=== PATIENT | female | born 1960 | race Caucasian/White ===

== ENCOUNTER → 2019-04-09 | Outpatient (CLI) | payer OTHER | END | disposition home or self-care (01) | LOC: LAB SHORT 13:50 → LAB 13:50 | DX: R30.0 Dysuria (principal) | CPT/HCPCS: 87086 ==

== ENCOUNTER 2020-01-28 04:49 | Inpatient (IN) | payer OTHER ==
[~2020-01-28] VITALS: Ht 68.2 cm; Wt 68.3 kg
[2020-01-28 05:13] LABS: BASOPHILS ABSOLUTE AUTO 0.04 K/mm3 (0.00-0.23); BASOPHILS PERCENT AUTO 0 % (0-2); EOSINOPHILS ABSOLUTE AUTO 0.27 K/mm3 (0.00-0.68); EOSINOPHILS PERCENT AUTO 3 % (0-6); Hematocrit 40.3 % (33.0-51.0); Hemoglobin 13.5 g/dL (11.5-16.0); IMMATURE GRAN ABSOLUTE AUTO 0.03 K/mm3 (0.00-0.10); IMMATURE GRAN PERCENT AUTO 0 % (0-1); LYMPHOCYTES PERCENT AUTO 26 % (21-46); MONOCYTES ABSOLUTE AUTO 0.61 K/mm3 (0.16-1.47); MONOCYTES PERCENT AUTO 6 % (4-13); Mean Corpuscular HGB 28.7 pg (26.0-34.0); Mean Corpuscular HGB Conc 33.5 g/dL (31.5-36.5); Mean Corpuscular Volume 86 fL (80-100); Mean Platelet Volume 10.1 fL (9.1-12.4); NEUTROPHILS ABSOLUTE AUTO 6.35 K/mm3 (1.96-9.15); NEUTROPHILS PERCENT AUTO 65 % (41-73); Platelet Count 296 K/mm3 (150-400); RDW Coefficient Variation 13.2 % (11.7-14.2); RDW Standard Deviation 41.9 fL (35.1-46.3)
[2020-01-28 05:46] LABS: Alanine Aminotransfer (ALT/SGP 17 U/L (12-78); Albumin, Blood 3.5 g/dL (3.4-5.0); Albumin/Globulin Ratio 0.9 (0.8-1.8); Alk Phos 89 U/L (50-136); Anion Gap 5 mmol/L (6-16); Aspartate Aminotrans (AST/SGOT 29 U/L (12-37); Bilirubin, Total 0.4 mg/dL (0.1-1.0); Blood Urea Nitrogen 9 mg/dL (8-24); Bun/Creatinine Ratio 11.8 (12.0-20.0); CO2, Blood 25 mmol/L (21-32); Calcium, Blood 8.8 mg/dL (8.5-10.1); Chloride, Blood 111 mmol/L (98-108); Creatinine, Blood 0.76 mg/dL (0.40-1.00); Globulin, Blood 3.7 g/dL (2.2-4.0); Glomerular Filtration Rate >60 (60-); Glucose, Blood 106 mg/dL (70-99); Potassium, Blood 4.5 mmol/L (3.5-5.5); Sodium, Blood 141 mmol/L (136-145); Total Protein, Blood 7.2 g/dL (6.4-8.2)
[2020-01-28 05:47] LABS: Troponin I 0.763 ng/mL (0.000-0.040)
--- NOTE | 2020-01-28 07:41 | NUR ---
PT ADMITTED HERE FROM ED TO [place] [address] VIA BED. RECEIVED REPORT FROM ZACARIAS. I STARTED THE ADMISSION, THEN RECEIVED THE CALL FROM LAB OF CRIT[facility]UE OF 1.42 TROPONIN. PT WILL BE SOON TRANSFERRED TO PCU. DR LAMBERT AND CHARGE NURSE- AWAITING BED FOR PCU
[2020-01-28 07:56] LABS: CPK Creatine Kinase 120 U/L (26-193)
--- NOTE | 2020-01-28 08:22 | NUR ---
PT TRANSFERRED FROM [place] [address] TO PCU 14. GAVE REPORT TO JOSÉ ENCISO AT 0815. PRIOR TO TRANSFER, NITRO WAS GIVEN AND NO CHANGES ON PT PAIN LEVEL. EKG WAS DONE, DR BALL ALSO CAME IN TO SEE THE PT.
--- NOTE | 2020-01-28 10:55 | NUR ---
Echocardiogram completed.
--- NOTE | 2020-01-28 13:41 | NUR ---
RIGHT RADIAL TR BAND IN PLACE POST ANGIO CATH. RIGHT RADIAL PULSE PALPABLE, MOVES ALL FIVE RIGHT RINGERS WITHOUT DIFFICULTY, RIGHT FINGER CAP REFILL <3.
[2020-01-28 14:57] LABS: CPK Creatine Kinase 90 U/L (26-193)
--- NOTE | 2020-01-28 17:37 | NUR ---
TR BAND REMOVED AT THIS TIME, CLEARSITE PLACED, NO BLEEDING, ARM BOARD REMAINS IN PLACE. WILL CONTINUE TO MONITOR.
--- NOTE | 2020-01-28 17:45 | NUR ---
SHIFT SUMMARY; A/A/OX4, ANGIO CATH TODAY WITH RIGHT RADIAL ACCESS. TOLERATED WELL. RIGHT ARM BOARD REMAINS IN PLACE. SLIGHT PAIN REMAINS TO BACK NEAR SHOULDER BLADES, MEDICATED FOR PAIN PER ORDERS. INDEPENDANT IN ROOM, VSS, WILL CONTINUE TO MONITOR AND TREAT UNTIL CHANGE OF SHIFT.
--- NOTE | 2020-01-28 20:30 | NUR ---
PATIENT AWAKE AND AWARE. DOES NOT REMEMBER WHAT THE DRAW HAND TOLD HER AND HER SON ABOUT ANGIOGRAM. PRODUCTIVE COUGH, LUNGS DIMINISHED IN THE RT APEX OTHERWISE CLEAR. COMPLAINS OF MID BACK PAIN, SHE FEELS THAT IT IS NOT SURFACE PAIN BUT DEEPER, PAIN WITH LIGHT PALPATION. REPOSITIONED ON TO HER LEFT SIDE FOR COMFORT, WILL REASSESS REGULARLY. CALL LIGHT IN REACH.
[2020-01-29 04:05] LABS: BASOPHILS ABSOLUTE AUTO 0.03 K/mm3 (0.00-0.23); BASOPHILS PERCENT AUTO 1 % (0-2); EOSINOPHILS ABSOLUTE AUTO 0.17 K/mm3 (0.00-0.68); EOSINOPHILS PERCENT AUTO 3 % (0-6); Hematocrit 36.4 % (33.0-51.0); Hemoglobin 12.1 g/dL (11.5-16.0); IMMATURE GRAN ABSOLUTE AUTO 0.02 K/mm3 (0.00-0.10); IMMATURE GRAN PERCENT AUTO 0 % (0-1); LYMPHOCYTES ABSOLUTE AUTO 2.23 K/mm3 (0.84-5.20); LYMPHOCYTES PERCENT AUTO 35 % (21-46); MONOCYTES ABSOLUTE AUTO 0.39 K/mm3 (0.16-1.47); MONOCYTES PERCENT AUTO 6 % (4-13); Mean Corpuscular HGB 28.8 pg (26.0-34.0); Mean Corpuscular HGB Conc 33.2 g/dL (31.5-36.5); Mean Corpuscular Volume 87 fL (80-100); Mean Platelet Volume 9.7 fL (9.1-12.4); NEUTROPHILS ABSOLUTE AUTO 3.46 K/mm3 (1.96-9.15); NEUTROPHILS PERCENT AUTO 55 % (41-73); Platelet Count 243 K/mm3 (150-400); RDW Coefficient Variation 13.3 % (11.7-14.2)
[2020-01-29 04:23] LABS: Alanine Aminotransfer (ALT/SGP 17 U/L (12-78); Albumin, Blood 3.1 g/dL (3.4-5.0); Alk Phos 67 U/L (50-136); Anion Gap 5 mmol/L (6-16); Aspartate Aminotrans (AST/SGOT 17 U/L (12-37); Bilirubin, Total 0.3 mg/dL (0.1-1.0); Blood Urea Nitrogen 8 mg/dL (8-24); Bun/Creatinine Ratio 9.4 (12.0-20.0); CO2, Blood 26 mmol/L (21-32); Chloride, Blood 112 mmol/L (98-108); Creatinine, Blood 0.85 mg/dL (0.40-1.00); Globulin, Blood 3.2 g/dL (2.2-4.0); Glomerular Filtration Rate >60 (60-); Glucose, Blood 82 mg/dL (70-99); Potassium, Blood 3.9 mmol/L (3.5-5.5); Sodium, Blood 143 mmol/L (136-145); Total Protein, Blood 6.3 g/dL (6.4-8.2)
[2020-01-29] MEDS ORDERED: ACET325 PO (09:20)
[2020-01-29] MEDS ORDERED: ASPI325 PO (09:21)
[2020-01-29] MEDS ORDERED: ALBU90OI INH (09:21)
[2020-01-29] MEDS ORDERED: BENZ100A PO (09:22)
[2020-01-29] MEDS ORDERED: Q-Tussin100 MG/5 M PO (09:22)
[2020-01-29] MEDS ORDERED: HYDR1TAB94 PO (09:23)
[2020-01-29] MEDS ORDERED: Lisinopril2.5 MG PO (09:37)
[2020-01-29] MEDS ORDERED: METO25 PO (09:40)
[2020-01-29] MEDS ORDERED: NITR.4SL SL (09:40)
[2020-01-29] MEDS ORDERED: Nicoderm Cq1 EAC1 TOP (09:40)
[2020-01-29] MEDS ORDERED: ONDA4ODT MM (09:41)
[2020-01-29] MEDS ORDERED: LORA.5 PO (10:50)
== END 2020-01-29 11:30 | disposition home or self-care (01) | DRG 281 ==
LOC: ER 04:49 → MEDS 04:50 → PCU 04:50 → MEDS 07:28 → PCU 08:18
PROVIDERS: Emergency Medicine; ADMIT Internal Medicine
PROC: 4A023N7 Measurement of Cardiac Sampling and Pressure, Left Heart, Percutaneous Approach (ICD-10-PCS; principal; 2020-01-28)
PROC: B2111ZZ Fluoroscopy of Multiple Coronary Arteries using Low Osmolar Contrast (ICD-10-PCS; 2020-01-28)
DX: I21.4 Non-ST elevation (NSTEMI) myocardial infarction (principal); I31.9 Disease of pericardium, unspecified; F17.210 Nicotine dependence, cigarettes, uncomplicated; Z20.828 Contact with and (suspected) exposure to other viral communicable diseases; Z85.118 Personal history of other malignant neoplasm of bronchus and lung; Z86.711 Personal history of pulmonary embolism; Z92.21 Personal history of antineoplastic chemotherapy; I25.10 Atherosclerotic heart disease of native coronary artery without angina pectoris; R05 Cough; R03.0 Elevated blood-pressure reading, without diagnosis of hypertension; R91.8 Other nonspecific abnormal finding of lung field
CPT/HCPCS: 36415; 71045; 71260; 80053; 82550; 84484; 85025; 85651; 85730; 86140; 93005; 93010; 93306; 93458; 96365; 96366; 96375; 96376; 99152; 99285-25; A9270; A9270-GY; C1769; C1894; G0378; J1644; J2250; J3010; J7030; J7040; Q9967; U0003

== ENCOUNTER 2020-04-08 09:19 | Emergency (ER) | payer OTHER ==
[~2020-04-08] VITALS: Ht 152.4 cm; Wt 69.4 kg
[~2020-04-08 09:19] MED LIST: ACET325 PO; ALBU90OI INH; ASPI325 PO; BENZ100A PO; HYDR1TAB94 PO; LORA.5 PO; Lisinopril2.5 MG PO; METO25 PO; NITR.4SL SL; Nicoderm Cq1 EAC1 TOP; ONDA4ODT MM; Q-Tussin100 MG/5 M PO
[2020-04-08] MEDS ORDERED: Prinivil10 MG PO (10:23)
[2020-04-08 10:52] LABS: BASOPHILS ABSOLUTE AUTO 0.01 K/mm3 (0.00-0.23); BASOPHILS PERCENT AUTO 1 % (0-2); EOSINOPHILS ABSOLUTE AUTO 0.08 K/mm3 (0.00-0.68); EOSINOPHILS PERCENT AUTO 6 % (0-6); Hematocrit 38.1 % (33.0-51.0); Hemoglobin 12.4 g/dL (11.5-16.0); Mean Corpuscular HGB 28.7 pg (26.0-34.0); Mean Corpuscular HGB Conc 32.5 g/dL (31.5-36.5); Mean Corpuscular Volume 88 fL (80-100); Platelet Count 111 K/mm3 (150-400); RDW Coefficient Variation 13.2 % (11.7-14.2); RDW Standard Deviation 42.8 fL (35.1-46.3); Red Blood Cell Count 4.32 M/mm3 (3.80-5.20); White Blood Cell Count 1.45 K/mm3 (4.00-11.30)
[2020-04-08 11:13] LABS: IMMATURE GRAN ABSOLUTE AUTO 0.02 K/mm3 (0.00-0.10); IMMATURE GRAN PERCENT AUTO 1 % (0-1); LYMPHOCYTES ABSOLUTE AUTO 1.21 K/mm3 (0.84-5.20); LYMPHOCYTES PERCENT AUTO 83 % (21-46); MONOCYTES ABSOLUTE AUTO 0.06 K/mm3 (0.16-1.47); MONOCYTES PERCENT AUTO 4 % (4-13); NEUTROPHILS ABSOLUTE AUTO 0.07 K/mm3 (1.96-9.15); NEUTROPHILS PERCENT AUTO 5 % (41-73)
[2020-04-08 11:16] LABS: Alanine Aminotransfer (ALT/SGP 45 U/L (12-78); Albumin, Blood 3.1 g/dL (3.4-5.0); Albumin/Globulin Ratio 0.9 (0.8-1.8); Alk Phos 96 U/L (50-136); Anion Gap 6 mmol/L (6-16); Aspartate Aminotrans (AST/SGOT 15 U/L (12-37); Bilirubin, Total 0.7 mg/dL (0.1-1.0); Blood Urea Nitrogen 10 mg/dL (8-24); Bun/Creatinine Ratio 13.2 (12.0-20.0); CO2, Blood 27 mmol/L (21-32); Calcium, Blood 8.5 mg/dL (8.5-10.1); Chloride, Blood 109 mmol/L (98-108); Creatinine, Blood 0.76 mg/dL (0.40-1.00); Globulin, Blood 3.6 g/dL (2.2-4.0); Glomerular Filtration Rate >60 (60-); Glucose, Blood 110 mg/dL (70-99); Potassium, Blood 3.7 mmol/L (3.5-5.5); Sodium, Blood 142 mmol/L (136-145); Total Protein, Blood 6.7 g/dL (6.4-8.2); Troponin I 0.092 ng/mL (0.000-0.040)
[2020-04-08 11:42] LABS: International Normalized Ratio 0.94; Prothrombin Time Results 10.1 Sec (9.7-11.5)
[2020-04-08] MEDS ORDERED: ALPRAZOLAM0.5 M1 PO (13:03)
[2020-04-08] MEDS ORDERED: PRINIVIL10 MG PO (13:03)
[2020-04-08] MEDS ORDERED: METO50ER PO (13:03)
[2020-04-08] MEDS ORDERED: REGLAN PO (13:04)
[2020-04-08] MEDS ORDERED: ATOR10 PO (13:04)
== END 2020-04-08 16:09 | disposition home or self-care (01) ==
LOC: ER 09:19
PROVIDERS: Emergency Medicine
DX: C34.90 Malignant neoplasm of unspecified part of unspecified bronchus or lung (principal); R79.89 Other specified abnormal findings of blood chemistry; F17.210 Nicotine dependence, cigarettes, uncomplicated; Z79.82 Long term (current) use of aspirin; Z86.718 Personal history of other venous thrombosis and embolism; Z79.899 Other long term (current) drug therapy
CPT/HCPCS: 36415; 71045; 71260; 80053; 83880; 84484; 85025; 85610; 93005; 93010; 99285-25; Q9967

== ENCOUNTER 2020-11-13 21:06 | Emergency (ER) | payer OTHER ==
[~2020-11-13] VITALS: Ht 152.4 cm; Wt 66.7 kg
[~2020-11-13 21:06] MED LIST changes: +ALPRAZOLAM0.5 M1 PO; +ATOR10 PO; +METO50ER PO; +PRINIVIL10 MG PO; +Prinivil10 MG PO; +REGLAN PO
[2020-11-13 22:28] LABS: BASOPHILS ABSOLUTE AUTO 0.03 K/mm3 (0.00-0.23); BASOPHILS PERCENT AUTO 0 % (0-2); EOSINOPHILS ABSOLUTE AUTO 0.13 K/mm3 (0.00-0.68); EOSINOPHILS PERCENT AUTO 2 % (0-6); Hematocrit 33.2 % (33.0-51.0); Hemoglobin 11.3 g/dL (11.5-16.0); Mean Corpuscular HGB 29.7 pg (26.0-34.0); Mean Corpuscular Volume 87 fL (80-100); Mean Platelet Volume 9.5 fL (9.1-12.4); Platelet Count 253 K/mm3 (150-400); RDW Coefficient Variation 15.7 % (11.7-14.2); RDW Standard Deviation 50.1 fL (35.1-46.3); White Blood Cell Count 7.86 K/mm3 (4.00-11.30)
[2020-11-13 22:29] LABS: IMMATURE GRAN ABSOLUTE AUTO 0.02 K/mm3 (0.00-0.10); IMMATURE GRAN PERCENT AUTO 0 % (0-1); LYMPHOCYTES ABSOLUTE AUTO 1.85 K/mm3 (0.84-5.20); LYMPHOCYTES PERCENT AUTO 24 % (21-46); MONOCYTES ABSOLUTE AUTO 0.47 K/mm3 (0.16-1.47); MONOCYTES PERCENT AUTO 6 % (4-13); NEUTROPHILS ABSOLUTE AUTO 5.36 K/mm3 (1.96-9.15); NEUTROPHILS PERCENT AUTO 68 % (41-73)
[2020-11-13 22:48] LABS: Albumin, Blood 3.4 g/dL (3.4-5.0); Albumin/Globulin Ratio 0.9 (0.8-1.8); Bilirubin, Total 0.2 mg/dL (0.1-1.0); Calcium, Blood 8.6 mg/dL (8.5-10.1); Globulin, Blood 3.7 g/dL (2.2-4.0); Potassium, Blood 3.9 mmol/L (3.5-5.5); Total Protein, Blood 7.1 g/dL (6.4-8.2); Troponin I 0.02 ng/mL (0.000-0.040)
== END 2020-11-14 02:46 | disposition home or self-care (01) ==
LOC: ER 21:06
PROVIDERS: Physician Assistant
DX: R07.9 Chest pain, unspecified (principal); M54.9 Dorsalgia, unspecified; I10 Essential (primary) hypertension; F17.210 Nicotine dependence, cigarettes, uncomplicated; Z85.118 Personal history of other malignant neoplasm of bronchus and lung; Z79.899 Other long term (current) drug therapy; Z79.82 Long term (current) use of aspirin
CPT/HCPCS: 36415; 71045; 80053; 83690; 84484; 85025; 93005; 93010; 96374; 99285-25; A9270; J1885

== ENCOUNTER 2021-11-13 21:20 | Emergency (ER) | payer OTHER ==
[~2021-11-13] VITALS: Ht 152.4 cm; Wt 65.3 kg
== END 2021-11-13 23:55 | disposition home or self-care (01) ==
LOC: ER 21:20
DX: U07.1 COVID-19 (principal); F17.210 Nicotine dependence, cigarettes, uncomplicated; Z79.899 Other long term (current) drug therapy; Z79.82 Long term (current) use of aspirin
CPT/HCPCS: 99283

== ENCOUNTER 2023-04-22 15:31 | Inpatient (IN) | payer OTHER ==
[~2023-04-22] VITALS: Ht 154.9 cm; Wt 68.2 kg
[~2023-04-22 15:31] MED LIST changes: +ASPI81CH PO; +LISI10 PO; -PRINIVIL10 MG PO
[2023-04-22 15:49] LABS: BASOPHILS ABSOLUTE AUTO 0.03 K/mm3 (0.00-0.23); BASOPHILS PERCENT AUTO 0 % (0-2); EOSINOPHILS ABSOLUTE AUTO 0.16 K/mm3 (0.00-0.68); EOSINOPHILS PERCENT AUTO 2 % (0-6); Hematocrit 40.3 % (33.0-51.0); Hemoglobin 13.6 g/dL (11.5-16.0); IMMATURE GRAN ABSOLUTE AUTO 0.04 K/mm3 (0.00-0.10); IMMATURE GRAN PERCENT AUTO 0 % (0-1); LYMPHOCYTES PERCENT AUTO 25 % (21-46); MONOCYTES ABSOLUTE AUTO 0.49 K/mm3 (0.16-1.47); MONOCYTES PERCENT AUTO 5 % (4-13); Mean Corpuscular HGB 29.4 pg (26.0-34.0); Mean Corpuscular HGB Conc 33.7 g/dL (31.5-36.5); Mean Corpuscular Volume 87 fL (80-100); Mean Platelet Volume 9.7 fL (9.1-12.4); NEUTROPHILS ABSOLUTE AUTO 7.27 K/mm3 (1.96-9.15); NEUTROPHILS PERCENT AUTO 68 % (41-73); Platelet Count 301 K/mm3 (150-400); RDW Coefficient Variation 14.7 % (11.7-14.2); Red Blood Cell Count 4.62 M/mm3 (3.80-5.20); White Blood Cell Count 10.69 K/mm3 (4.00-11.30)
[2023-04-22 16:05] LABS: International Normalized Ratio 0.92; Prothrombin Time Results 9.7 Sec (9.7-11.5)
[2023-04-22 16:10] LABS: Albumin, Blood 3.4 g/dL (3.4-5.0); Albumin/Globulin Ratio 0.9 (0.8-1.8); Bilirubin, Total 0.4 mg/dL (0.1-1.0); Bun/Creatinine Ratio 10.1 (12.0-20.0); Calcium, Blood 9.3 mg/dL (8.5-10.1); Creatinine, Blood 0.89 mg/dL (0.40-1.00); Globulin, Blood 3.8 g/dL (2.2-4.0); Potassium, Blood 3.9 mmol/L (3.5-5.5); Total Protein, Blood 7.2 g/dL (6.4-8.2)
[2023-04-22 21:39] VITALS: BP 146/75
[2023-04-23 03:32] VITALS: BP 134/62
--- NOTE | 2023-04-23 05:49 | NUR ---
SHIFT SUMMARY 63 YR F ADMITTED FROM ED THIS SHIFT. DNR. NO ACUTE CHANGES SINCE ADMISSION. PT WAS HUNGRY AND TIRED UPON ARRIVING TO THIS UNIT. SHE ATTEMPTED TO EAT A SANDWHICH BUT STATED THAT CHEWING IT FELT "WEIRD" SO SHE HAD A PUDDING INSTEAD. ONCE ADMISSION AND ASESSMENT WERE COMPLETED SHE FELL ASLEEP AND HAS SLEPT FOR MOST OF THE REST OF THE SHIFT. SHE IS VERY PLEASANT AND COOPERATIVE. NO CALLS FROM PE TEACHER SINCE HER ARRIVAL. SHE CALLS APPROPRIATELY FOR ASSISTANCE TO THE BATHROOM. SHE IS STEADY ON HER FEET BUT SGA FOR SAFETY. BED IN LOW POSITION AND CALL LIGHT IN REACH.
[2023-04-23 06:32] LABS: BASOPHILS ABSOLUTE AUTO 0.03 K/mm3 (0.00-0.23); BASOPHILS PERCENT AUTO 0 % (0-2); EOSINOPHILS ABSOLUTE AUTO 0.14 K/mm3 (0.00-0.68); EOSINOPHILS PERCENT AUTO 2 % (0-6); Hematocrit 36.8 % (33.0-51.0); Hemoglobin 12.5 g/dL (11.5-16.0); IMMATURE GRAN ABSOLUTE AUTO 0.03 K/mm3 (0.00-0.10); IMMATURE GRAN PERCENT AUTO 0 % (0-1); LYMPHOCYTES ABSOLUTE AUTO 2.02 K/mm3 (0.84-5.20); LYMPHOCYTES PERCENT AUTO 27 % (21-46); MONOCYTES ABSOLUTE AUTO 0.48 K/mm3 (0.16-1.47); MONOCYTES PERCENT AUTO 6 % (4-13); Mean Corpuscular HGB 29.5 pg (26.0-34.0); Mean Corpuscular Volume 87 fL (80-100); NEUTROPHILS PERCENT AUTO 64 % (41-73); Platelet Count 251 K/mm3 (150-400); RDW Coefficient Variation 14.8 % (11.7-14.2); RDW Standard Deviation 47.1 fL (35.1-46.3); Red Blood Cell Count 4.24 M/mm3 (3.80-5.20)
[2023-04-23 07:23] LABS: Albumin/Globulin Ratio 0.8 (0.8-1.8); Bilirubin, Total 0.6 mg/dL (0.1-1.0); Calcium, Blood 8.9 mg/dL (8.5-10.1); Creatinine, Blood 0.9 mg/dL (0.40-1.00); Globulin, Blood 3.6 g/dL (2.2-4.0); Potassium, Blood 3.9 mmol/L (3.5-5.5); Total Protein, Blood 6.6 g/dL (6.4-8.2)
[2023-04-23 07:41] VITALS: BP 126/64
--- NOTE | 2023-04-23 09:00 | NUR ---
pt laying in bed, family at bedside, a/ox4, pleasnt and cooperative with care, follows commands well, denies pain, lungs are clear, dim in bases, resp even and unlabored, no cough noted, however she reports an occ cough with white sputum, hrr, no edema noted, ppp+2, cap refill <3sec, vs stable, afebrile, piv to lac site is clear and patent, btx4, abd flat soft nontender, reports reg bm's and voids without diff, skin c/w/d, danielle cruz, her smile is asymetrical, swallow is a bit diff, speech working with her, will have a barium swallow today, call light in reach.
[2023-04-23 09:46] LABS: CHOL/HDL RATIO 3.5; Cholesterol 135 mg/dL (50-200); HDL Cholesterol 39 mg/dL (>39); LDL/HDL RATIO 2.1; Low Density Lipoprotein Chol 80 mg/dL (0-110); Triglycerides 79 mg/dL (30-160); Very Low Density Lipoprot Chol 15 mg/dL (6-32)
--- NOTE | 2023-04-23 13:14 | NUR ---
pt was advanced to a diet after her barium swallow, no further changes, report given to Tory ENCISO. call light in reach.
[2023-04-23 16:00] VITALS: BP 128/75
--- NOTE | 2023-04-23 17:28 | NUR ---
SUMMARY- AAOX2-3, X2 MAX ASSIST TO BSC W/GAIT BELT. PT DENIES PAIN. PT CALM AND COOPERATIVE THIS SHIFT. OBEYS COMMANDS. PT IS HAVING A DIFFICULT TIME FOLLOWING FLUID RESTRICTION AND CONSTANTLY NEEDS REMINDERS.
--- NOTE | 2023-04-23 17:37 | NUR ---
SUMMARY- PT AAOX4, SBA. TOLERATING SOFT BIT-SIZED DIET. PT DENIES ANY PAIN. NO CHANGES WITH NEURO EXAM. PT STILL SHOWING L SIDED FACIAL DEFICITS.PT COOPERATIVE AND CALM.
[2023-04-23] MEDS ORDERED: CLOP75 PO (19:06)
--- NOTE | 2023-04-23 19:40 | NUR ---
RN TOOK PT OUT VIA WHEELCHAIR.
== END 2023-04-23 19:44 | disposition home or self-care (01) | DRG 66 ==
LOC: ER 15:31 → MEDS 15:32
PROVIDERS: Emergency Medicine; Family Medicine; Internal Medicine; ADMIT Student in an Organized Health Care Education/Training Program
DX: I63.9 Cerebral infarction, unspecified (principal); I25.10 Atherosclerotic heart disease of native coronary artery without angina pectoris; R47.01 Aphasia; I25.2 Old myocardial infarction; I10 Essential (primary) hypertension; E78.5 Hyperlipidemia, unspecified; R13.12 Dysphagia, oropharyngeal phase; G51.0 Bell's palsy; R77.8 Other specified abnormalities of plasma proteins; I65.09 Occlusion and stenosis of unspecified vertebral artery; R29.702 NIHSS score 2; F17.210 Nicotine dependence, cigarettes, uncomplicated; Z98.890 Other specified postprocedural states; Z79.82 Long term (current) use of aspirin; Z79.899 Other long term (current) drug therapy; Z71.6 Tobacco abuse counseling; Z85.118 Personal history of other malignant neoplasm of bronchus and lung
CPT/HCPCS: 36415; 70450; 70496; 70498; 70551; 74230; 80053; 80061; 84484; 85025; 85610; 85730; 92610; 92611; 93005; 93010; 93306; 93880; 96372; 97116; 97161; 97530; 99285-25; A9270; G0378; J1650; Q9967

== ENCOUNTER 2024-01-11 07:33 | Inpatient (IN) | payer OTHER ==
[~2024-01-11] VITALS: Ht 157.5 cm; Wt 64.5 kg
[~2024-01-11 07:33] MED LIST changes: -ATOR10 PO; +ATOR80 PO; +CLOP75 PO
[2024-01-11] MEDS ORDERED: Albuterol 2.5 MG/3 ML VIAL INH ONE (07:40)
[2024-01-11] MEDS ORDERED: Midazolam HCl 1MG / ML 2ML Vial IV ONE (07:50)
[2024-01-11 07:52] LABS: BASOPHILS ABSOLUTE AUTO 0.05 K/mm3 (0.00-0.23); BASOPHILS PERCENT AUTO 0 % (0-2); EOSINOPHILS ABSOLUTE AUTO 0.12 K/mm3 (0.00-0.68); EOSINOPHILS PERCENT AUTO 1 % (0-6); Hematocrit 29.7 % (33.0-51.0); Hemoglobin 9.5 g/dL (11.5-16.0); Mean Corpuscular HGB 28.9 pg (26.0-34.0); Mean Corpuscular Volume 90 fL (80-100); Mean Platelet Volume 9.8 fL (9.1-12.4); NRBC ABSOLUTE 0.03 K/mm3 (0.00-0.02); NRBC Auto 0.2 /100 WBC (0.0-0.2); Platelet Count 318 K/mm3 (150-400); RDW Coefficient Variation 16.7 % (11.7-14.2); RDW Standard Deviation 55.8 fL (35.1-46.3); Red Blood Cell Count 3.29 M/mm3 (3.80-5.20); White Blood Cell Count 12.55 K/mm3 (4.00-11.30)
[2024-01-11 07:56] LABS: pH Blood Venous 7.17 (7.34-7.37)
[2024-01-11 07:57] LABS: PCO2 Venous 56.7 mmHg (38-42)
[2024-01-11 08:14] LABS: IMMATURE GRAN ABSOLUTE AUTO 0.21 K/mm3 (0.00-0.10); IMMATURE GRAN PERCENT AUTO 2 % (0-1); LYMPHOCYTES ABSOLUTE AUTO 4.21 K/mm3 (0.84-5.20); LYMPHOCYTES PERCENT AUTO 34 % (21-46); MONOCYTES ABSOLUTE AUTO 0.71 K/mm3 (0.16-1.47); MONOCYTES PERCENT AUTO 6 % (4-13); NEUTROPHILS ABSOLUTE AUTO 7.25 K/mm3 (1.96-9.15); NEUTROPHILS PERCENT AUTO 58 % (41-73)
[2024-01-11 08:24] LABS: Albumin, Blood 2.5 g/dL (3.4-5.0); Albumin/Globulin Ratio 0.8 (0.8-1.8); Bilirubin, Total 0.5 mg/dL (0.1-1.0); Bun/Creatinine Ratio 6.1 (12.0-20.0); Calcium, Blood 7.9 mg/dL (8.5-10.1); Creatinine, Blood 1.15 mg/dL (0.40-1.00); Globulin, Blood 3.3 g/dL (2.2-4.0); Magnesium, Blood 4.3 mg/dL (1.6-2.4); Potassium, Blood 3.7 mmol/L (3.5-5.5); Total Protein, Blood 5.8 g/dL (6.4-8.2)
[2024-01-11] MEDS ORDERED: Albuterol 2.5 MG/3 ML VIAL INH SCH (08:30)
[2024-01-11 09:13] LABS: BASOPHILS PERCENT MAN 0 % (0-2); EOSINOPHILS ABSOLUTE MAN 0.12 K/mm3 (0.00-0.68); EOSINOPHILS PERCENT MAN 1 % (0-6); LYMPHOCYTES % ATYPICAL MANUAL 3 % (0-0); LYMPHOCYTES ABSOLUTE MAN 3.13 K/mm3 (0.84-5.20); LYMPHOCYTES PERCENT MAN 22 % (21-46); MONOCYTES ABSOLUTE MAN 0.62 K/mm3 (0.16-1.47); MONOCYTES PERCENT MAN 5 % (4-13); NEUTROPHILS ABSOLUTE MAN 8.65 K/mm3 (1.96-9.15); SEG NEUTROPHILS PERCENT MAN 69 % (41-73); TOTAL CELLS COUNTED 100
[2024-01-11 09:25] LABS: Influenza A, PCR NEGATIVE (NEGATIVE); Influenza B, PCR NEGATIVE (NEGATIVE); Resp Syncytial Virus, PCR NEGATIVE (NEGATIVE); SARS-Cov-2 (COVID-19) PCR, MMC NEGATIVE (NEGATIVE)
[2024-01-11] MEDS ORDERED: Furosemide 10 MG/ML 4ML Vial IV ONE (09:50)
[2024-01-11] MEDS ORDERED: Acetaminophen 325 MG TABLET PO PRN (11:30)
[2024-01-11] MEDS ORDERED: Albuterol 2.5 MG/3 ML VIAL INH PRN (11:30)
[2024-01-11] MEDS ORDERED: FLU VACC TS2024-25(6MOS UP)/PF 45 MCG/0.5 ML SYRINGE IM PRN (11:35)
[2024-01-11] MEDS ORDERED: Ipratropium/Albuterol SulF 2.5-0.5MG/3 ML Amp INH SCH (11:35)
[2024-01-11] MEDS ORDERED: Clopidogrel Bisulfate 75 MG Tab PO SCH (12:00)
[2024-01-11] MEDS ORDERED: Lisinopril 10 MG Tab PO SCH (12:00)
[2024-01-11] MEDS ORDERED: Metoprolol Succinate 50 MG TABCR PO SCH (12:00)
[2024-01-11 12:51] VITALS: BP 130/68
[2024-01-11] MEDS ORDERED: OMEP20ER PO (13:01)
[2024-01-11] MEDS ORDERED: STIOLTO RESPIMAT4 G1 INH (13:02)
[2024-01-11] MEDS ORDERED: Prozac40 MG PO (13:03)
[2024-01-11] MEDS ORDERED: ALEN70 PO (13:08)
[2024-01-11] MEDS ORDERED: MethylPREDNISolone Sod Succ 125 MG Vial IV SCH (16:00)
[2024-01-11 16:15] VITALS: BP 114/71
--- NOTE | 2024-01-11 17:41 | NUR ---
ASSUMPTION OF CARE/SHIFT SUMMARY RECIEVED REPORT FROM MATHEUS EARLY CHILDHOOD ASSOCIATE TEACHER AT 1250. PT ARRIVED TO PCU VIA ER BED. SLID PT WITH SLIDER SHEET FROM ER BED TO PCU BED. PT ALERT AND ORIENTED, CALM, COOPERATIVE TO CARE, SKIN INTACT NO BREAKDOWN NOTED, HR IN THE 70'S-80'S, SINUS RHYTHM, DENIES CP/PRESSURE, NUMB/TINGLING. L/S CRACKLES T/S, PT ON 4L VIA NC, O2 >92%. +BS, NO TENDERNESS OR PAIN ON PALPATION, PUREWICK IN PLACE FOR STRICT I AND O MONITORING. PALLITIVE CARE CONSULT PLACED FOR AV/POLST FORM. PT RECIEVED FLU VACCINE. DIUERESING PER ORDERS. PT WITH NO QUESTIONS OR CONCENRS AT THIS TIME, WILL CONTINUE TO MONITOR AND REPORT TO MANUSCRIPT EDITOR RN.
[2024-01-11] MEDS ORDERED: Furosemide 10 MG / ML 2ML Vial IV SCH (18:00)
[2024-01-11] MEDS ORDERED: Atorvastatin 40 MG Tab PO SCH (18:00)
[2024-01-11 20:47] VITALS: BP 113/65
[2024-01-11 23:54] VITALS: BP 124/63
[2024-01-12 00:37] VITALS: BP 124/63
[2024-01-12 04:32] LABS: BASOPHILS ABSOLUTE AUTO 0.01 K/mm3 (0.00-0.23); BASOPHILS PERCENT AUTO 0 % (0-2); EOSINOPHILS PERCENT AUTO 0 % (0-6); Hematocrit 29.5 % (33.0-51.0); Hemoglobin 10.1 g/dL (11.5-16.0); IMMATURE GRAN ABSOLUTE AUTO 0.12 K/mm3 (0.00-0.10); IMMATURE GRAN PERCENT AUTO 1 % (0-1); LYMPHOCYTES ABSOLUTE AUTO 0.88 K/mm3 (0.84-5.20); LYMPHOCYTES PERCENT AUTO 6 % (21-46); MONOCYTES PERCENT AUTO 1 % (4-13); Mean Corpuscular HGB 28.9 pg (26.0-34.0); Mean Corpuscular HGB Conc 34.2 g/dL (31.5-36.5); Mean Platelet Volume 9.9 fL (9.1-12.4); NEUTROPHILS ABSOLUTE AUTO 13.47 K/mm3 (1.96-9.15); NEUTROPHILS PERCENT AUTO 92 % (41-73); Platelet Count 290 K/mm3 (150-400); RDW Coefficient Variation 16.8 % (11.7-14.2); RDW Standard Deviation 52.4 fL (35.1-46.3); Red Blood Cell Count 3.49 M/mm3 (3.80-5.20); White Blood Cell Count 14.68 K/mm3 (4.00-11.30)
[2024-01-12 05:12] LABS: Albumin, Blood 2.8 g/dL (3.4-5.0); Albumin/Globulin Ratio 0.8 (0.8-1.8); Bilirubin, Total 0.6 mg/dL (0.1-1.0); Bun/Creatinine Ratio 10.7 (12.0-20.0); Calcium, Blood 8.3 mg/dL (8.5-10.1); Creatinine, Blood 0.94 mg/dL (0.40-1.00); Globulin, Blood 3.4 g/dL (2.2-4.0); Potassium, Blood 3.1 mmol/L (3.5-5.5); Total Protein, Blood 6.2 g/dL (6.4-8.2)
[2024-01-12 05:14] LABS: Mean Corpuscular Volume 85 fL (80-100)
--- NOTE | 2024-01-12 05:45 | NUR ---
SHIFT SUMMARY PATIENT ALERT, ORIENTED x3-4. ABLE TO MAKE NEEDS KNOWN TO STAFF. VITALS STABLE DURING THE NIGHT. NO TELE EVENTS. PATIENT ALTERNATING BETWEEN 2L NC AND BIPAP, SPO2 >90%. PATIENT DID REPORT MILD ANXIETY THIS SHIFT. PUREWICK IN PLACE DRAINING CLEAR YELLOW URINE. MOVING SELF IN BED. TOLERATING PO. NO OTHER CHANGES THIS SHIFT, WILL REPORT TO DAY SHIFT RN.
[2024-01-12 05:57] VITALS: BP 135/65
[2024-01-12] MEDS ORDERED: Pantoprazole Sodium 20 MG Tab PO SCH (06:00)
[2024-01-12 08:02] VITALS: BP 126/72
[2024-01-12] MEDS ORDERED: Enoxaparin 40 MG/0.4 ML SYR SC SCH (09:00)
[2024-01-12] MEDS ORDERED: FLUoxetine HCL 20 MG CAP PO SCH (09:00)
[2024-01-12] MEDS ORDERED: Potassium Chloride 20 MEQ TabCR PO ONE (09:00)
[2024-01-12] MEDS ORDERED: Azithromycin 250 MG Tab PO ONE (09:20)
[2024-01-12] MEDS ORDERED: Metoprolol Succinate 50 MG TABCR PO ONE (09:35)
--- NOTE | 2024-01-12 10:15 | NUR ---
ASSUMPTION OF CARE PT ALERT AND ORIENTED, CALM, COOPERATIVE TO CARE. SKIN INTACT NO BREAKDOWN NOTED. LEFT FA IV S/L. NURSE ASSIST FOR TRANSFERING. SR, HR 90'S-100'S, SBP STABLE, DENIES CP/PRESSURE. L/S DIM T/O, O2 >92% ON 2-3L VIA NC, SOB WITH EXERTION, PT REPORTS BREATHING HAS IMPROVED SINCE YESTERDAY. +BS, NONTENDER. PUREWICK IN PLACE FOR URGENCY. MININAL BLE EDEMA. PROVIDER TO BEDSIDE TO DISCUSS PLAN OF CARE. ORDERS FOR PT/OT IN PLACE. STATUS CHANGE TO MEDICAL WITH TELE. INCREASES METOPROLOL FOR HR CONTROL, MEDICATED PT PER ORDERS. PO ABX STARTED TODAY. PUREWICK REMOVED, PT TO USE BEDSIDE COMMODE TO URINATE, PT AGREEABLE TO ROBIN. PT WITH NO QUESTIONS OR CONCERNS AT THIS TIME. WILL CONTINUE TO MONITOR PT.
[2024-01-12 11:39] VITALS: BP 135/77
[2024-01-12 17:38] VITALS: BP 117/65
--- NOTE | 2024-01-12 17:41 | NUR ---
SHIFT SUMMARY PT ALERT AND ORIENTED, VSS. O2 >92% ON 2L VIA NC, SOB/TIRED WITH EXERTION. ALERT AND ORIENTED, COOPERATIVE TO CARE. PUREWICK REMOVED THIS MORNING, PT TO BEDSIDE COMMODE WITH NURSE ASSIST. PT STARTED PO ABX THIS AM, FREQUENCY OF IV STERIOD DECREASED, PO METOPROLOL INCREASED, PT TOLERATING WELL. PT WORKED WITH PT THIS AM. NO ACUTE CHANGES T/O SHIFT, WILL CONTINUE TO MONITOR PT AND REPORT TO DIRECTOR OF BUSINESS CONTINUITY RN.
[2024-01-12 20:30] VITALS: BP 107/70
[2024-01-12] MEDS ORDERED: MethylPREDNISolone Sod Succ 125 MG Vial IV SCH (21:00)
[2024-01-13 04:28] VITALS: BP 114/70
[2024-01-13 05:18] LABS: BASOPHILS ABSOLUTE AUTO 0.02 K/mm3 (0.00-0.23); BASOPHILS PERCENT AUTO 0 % (0-2); EOSINOPHILS PERCENT AUTO 0 % (0-6); Hematocrit 29.5 % (33.0-51.0); Hemoglobin 10.1 g/dL (11.5-16.0); IMMATURE GRAN ABSOLUTE AUTO 0.13 K/mm3 (0.00-0.10); IMMATURE GRAN PERCENT AUTO 1 % (0-1); LYMPHOCYTES ABSOLUTE AUTO 0.96 K/mm3 (0.84-5.20); LYMPHOCYTES PERCENT AUTO 5 % (21-46); MONOCYTES ABSOLUTE AUTO 0.39 K/mm3 (0.16-1.47); MONOCYTES PERCENT AUTO 2 % (4-13); Mean Corpuscular HGB Conc 34.2 g/dL (31.5-36.5); Mean Corpuscular Volume 85 fL (80-100); Mean Platelet Volume 10.1 fL (9.1-12.4); NEUTROPHILS ABSOLUTE AUTO 16.86 K/mm3 (1.96-9.15); NEUTROPHILS PERCENT AUTO 92 % (41-73); Platelet Count 309 K/mm3 (150-400); RDW Coefficient Variation 17.3 % (11.7-14.2); RDW Standard Deviation 53.5 fL (35.1-46.3); Red Blood Cell Count 3.48 M/mm3 (3.80-5.20); White Blood Cell Count 18.36 K/mm3 (4.00-11.30)
[2024-01-13 06:04] LABS: Albumin, Blood 2.7 g/dL (3.4-5.0); Albumin/Globulin Ratio 0.8 (0.8-1.8); Bilirubin, Total 0.5 mg/dL (0.1-1.0); Bun/Creatinine Ratio 15.1 (12.0-20.0); Calcium, Blood 8.3 mg/dL (8.5-10.1); Creatinine, Blood 1.06 mg/dL (0.40-1.00); Globulin, Blood 3.5 g/dL (2.2-4.0); Potassium, Blood 3.7 mmol/L (3.5-5.5); Total Protein, Blood 6.2 g/dL (6.4-8.2)
[2024-01-13 07:39] VITALS: BP 113/69
[2024-01-13] MEDS ORDERED: Azithromycin 250 MG Tab PO SCH (09:00)
[2024-01-13] MEDS ORDERED: Furosemide 20 MG Tab PO SCH (09:00)
[2024-01-13] MEDS ORDERED: Metoprolol Succinate 50 MG TABCR PO SCH (09:00)
[2024-01-13 14:28] VITALS: BP 101/56
--- NOTE | 2024-01-13 18:14 | NUR ---
END OF SHIFT SUMMARY: A&Ox4. PLEASANT AND COOPERATIVE WITH CARE. CALLS APPROPRIATELY AND IS ABLE TO ADVOCATE NEEDS EFFECTIVELY. CONTINENT OF BOWEL AND BLADDER AND AMBULATES INDEPENDENTLY AROUND THE ROOM. FREQUENT URINATION SECONDARY TO IV FUROSEMIDE ADMINISTRATION. LAST BM YESTERDAY. MEDS WHOLE WITH FLUIDS. TELE DCd THIS SHIFT. NO C / O PAIN OR DISCOMFORT. MEDS CHANGED FROM IV TO PO THIS SHIFT AND WEANED OFF OF OXYGEN; NO ON ROOM AIR. CHANGED LOVENOX CHEMICAL DVT PROPHYLAXIS TO MECHANICAL SCDs PER PT PREFERENCE. WEAKNED TO ROOM AIR TODAY; NO FURTHER NEED FOR O2 AT THIS TIME. BED IN LOWEST POSITION. CALL LIGHT WITHIN REACH. ALL NEEDS MET. REPORT TO ONCOMING NURSE. ANTICIPATE DC TOMORROW.
[2024-01-13 19:58] VITALS: BP 108/62
[2024-01-14 04:28] VITALS: BP 118/72
[2024-01-14 05:25] LABS: BASOPHILS ABSOLUTE AUTO 0.01 K/mm3 (0.00-0.23); BASOPHILS PERCENT AUTO 0 % (0-2); EOSINOPHILS PERCENT AUTO 0 % (0-6); Hematocrit 29.4 % (33.0-51.0); Hemoglobin 9.9 g/dL (11.5-16.0); IMMATURE GRAN PERCENT AUTO 1 % (0-1); LYMPHOCYTES ABSOLUTE AUTO 1.64 K/mm3 (0.84-5.20); LYMPHOCYTES PERCENT AUTO 12 % (21-46); MONOCYTES PERCENT AUTO 6 % (4-13); Mean Corpuscular HGB 28.5 pg (26.0-34.0); Mean Corpuscular HGB Conc 33.7 g/dL (31.5-36.5); Mean Corpuscular Volume 85 fL (80-100); Mean Platelet Volume 9.8 fL (9.1-12.4); NEUTROPHILS ABSOLUTE AUTO 11.43 K/mm3 (1.96-9.15); NEUTROPHILS PERCENT AUTO 82 % (41-73); Platelet Count 290 K/mm3 (150-400); RDW Coefficient Variation 17.3 % (11.7-14.2); RDW Standard Deviation 53.6 fL (35.1-46.3); Red Blood Cell Count 3.47 M/mm3 (3.80-5.20); White Blood Cell Count 13.98 K/mm3 (4.00-11.30)
--- NOTE | 2024-01-14 05:41 | NUR ---
SHIFT SUMMARY PATIENT IS ALERT AND ORIENTED. PATIENT HAS HAD NO ACUTE EVENTS THIS SHIFT. PATIENT HAS BEEN RESTING COMFORTABLY ALL SHIFT. PATIENT IND IN ROOM. PATIENT HAS HAD NO COMPLAINTS OF PAIN, NAUSEA, SOB OR VOMITTING. PATIENT IS A POSSIBLE DC TODAY. BED IN LOCKED AND LOWEST POSITION. CALL LIGHT IN PLACE. WILL MONITOR UNTIL SHIFT CHANGE.
[2024-01-14 06:05] LABS: Bun/Creatinine Ratio 23.6 (12.0-20.0); Calcium, Blood 8.3 mg/dL (8.5-10.1); Creatinine, Blood 1.1 mg/dL (0.40-1.00); Potassium, Blood 3.3 mmol/L (3.5-5.5)
[2024-01-14 07:59] VITALS: BP 117/72
[2024-01-14] MEDS ORDERED: PredniSONE 20 MG Tab PO SCH (09:00)
[2024-01-14] MEDS ORDERED: Potassium Chloride 20 MEQ TabCR PO ONE (10:00)
[2024-01-14] MEDS ORDERED: PANT20 PO (12:16)
[2024-01-14] MEDS ORDERED: FURO20 PO (12:17)
[2024-01-14] MEDS ORDERED: AZIT250 PO (12:17)
[2024-01-14] MEDS ORDERED: PRED20 PO (12:21)
[2024-01-14] MEDS ORDERED: POTA10T PO (12:23)
--- NOTE | 2024-01-14 16:03 | NUR ---
SHIFT/DISCHARGE SUMMARY: PATIENT A/OX4, PLEASANT AND COOPERATIVE c CARE. PATIENT DENIES CP/PRESSURE, SOB, N/V AND DIZZINESS. PATIENT HAS HAD NO NEW CHANGES THIS SHIFT. PATIENT ON RA SATTING 92-95%. PATIENT HAD HOME O2 EVAL THIS PM, RT RECOMMENDED 1L O2 c EXCERTION. PATIENT RECEIVED SCHEDULED MEDS PER EMAR. VITAL SIGNS REVIEWED. PATIENT HAS NO COMPLIANTS OR DENIES ANY CONCERNED THIS SHIFT. PORTABLE O2 DELIVERED IN ROOM BY SAMUEL KRUSE THIS PM. PIV TO [facility] DC'D. PATIENT DISCHARGE HOME. DISCHARGE INSTRUCTIONS PAKET GIVEN TO PATIENT. EDUCATED PATIENT REGARDING ADMITTING DX'S OF COPD c ACUTE EXACERBATION, S/S, TX, SELF CARE, HOME O2, NEW RX AND TO F/U c PCP. PATIENT AND DAUGHTER AT BEDSIDE VERBALIZED UNDERSTANDING AND NO FURTHER QUESTIONS. RX WAS FAXED TO PATIENT PREFERRED [facility]ARM[facility]. ALL PATIENT PERSONAL BELONGINGS WERE SENT HOME c THE PATIENT. PATIENT LEFT THE ROOM AT 1610, TRANSPORTED VIA WHEELCHAIR BY ISHAAN ALFARO TO PATIENT ENTRANCE.
== END 2024-01-14 16:15 | disposition home health service (06) | DRG 291 ==
LOC: ER 07:33 → MEDS 11:29 → PCU 11:29 → MEDS 01-13 00:29 → ENPENDDIS 01-14 14:09 → MEDS 01-14 16:15
PROVIDERS: Student in an Organized Health Care Education/Training Program; ADMIT Internal Medicine
PROC: 3E02340 Introduction of Influenza Vaccine into Muscle, Percutaneous Approach (ICD-10-PCS; principal; 2024-01-11)
PROC: 5A09357 Assistance with Respiratory Ventilation, Less than 24 Consecutive Hours, Continuous Positive Airway Pressure (ICD-10-PCS; 2024-01-11)
DX: I11.0 Hypertensive heart disease with heart failure (principal); I50.33 Acute on chronic diastolic (congestive) heart failure; J96.01 Acute respiratory failure with hypoxia; Z23 Encounter for immunization; J43.9 Emphysema, unspecified; I25.10 Atherosclerotic heart disease of native coronary artery without angina pectoris; E78.5 Hyperlipidemia, unspecified; R73.9 Hyperglycemia, unspecified; E87.6 Hypokalemia; Z87.891 Personal history of nicotine dependence; Z85.118 Personal history of other malignant neoplasm of bronchus and lung; Z86.73 Personal history of transient ischemic attack (TIA), and cerebral infarction without residual deficits; I25.2 Old myocardial infarction; Z86.718 Personal history of other venous thrombosis and embolism; Z79.899 Other long term (current) drug therapy; Z92.21 Personal history of antineoplastic chemotherapy; Z92.3 Personal history of irradiation
CPT/HCPCS: 0241U; 36415; 71045; 80048; 80053; 82803; 83036; 83735; 83880; 84145; 84484; 85025; 93005; 93010; 93306; 94640; 94660; 94664; 94760; 94761; 94762; 96374; 96375; 97110; 97116; 97161; 97165; 97530; 99285-25; A9270; J1650; J1940; J2250; J2470; J2919; J7512

== ENCOUNTER 2024-03-14 01:52 | Inpatient (IN) | payer OTHER ==
[~2024-03-14] VITALS: Ht 160 cm; Wt 64.7 kg
[2024-03-14] VITALS (22 sets, daily range): BP systolic 72–136; BP diastolic 48–73
[~2024-03-14 01:52] MED LIST changes: +ALEN70 PO; +AZIT250 PO; +FURO20 PO; +OMEP20ER PO; +PANT20 PO; +POTA10T PO; +PRED20 PO; +Prozac40 MG PO; +STIOLTO RESPIMAT4 G1 INH
[2024-03-14 02:15] LABS: Source, Urine Foley catheter
[2024-03-14] MEDS ORDERED: fentaNYL citrate 1,000 MCG in NS 80 ML IV SCH (02:15)
[2024-03-14] MEDS ORDERED: Midazolam HCL 50 MG in NS 40 ML IV PRN (02:15)
[2024-03-14] MEDS ORDERED: Midazolam HCl 1MG / ML 2ML Vial IV SCH (02:15)
[2024-03-14 02:17] LABS: Calcium, Ionized (POC) 1.05 mmol/L (1.10-1.46); Chloride (POC) 104 mmol/L (98-108); Creatinine (POC) 1.2 mg/dL (0.6-1.0); Glucose (ISTAT POC) 274 mg/dL (70-99); Hemoglobin (POC) 11.9 g/dL (12.0-16.0); Sodium (POC) 145 mmol/L (135-148); Total CO2 (POC) 20 mmol/L (21-32)
[2024-03-14 02:25] LABS: Bilirubin, Urine Neg (Neg); Blood, Urine Neg (Neg); Glucose Qualitative, Urine Neg (Neg); Ketones, Urine Neg (Neg); Leukocyte Esterase, Urine Neg (Neg); Nitrite, Urine Neg (Neg); Protein, Urine Neg (Neg); Specific Gravity, Urine 1.005 (1.003-1.022); Urobilinogen, Urine NORM (Normal)
[2024-03-14] MEDS ORDERED: Albuterol 2.5 MG/3 ML VIAL INH SCH (02:25)
[2024-03-14 02:31] LABS: BASOPHILS ABSOLUTE AUTO 0.08 K/mm3 (0.00-0.23); BASOPHILS PERCENT AUTO 0 % (0-2); EOSINOPHILS ABSOLUTE AUTO 0.07 K/mm3 (0.00-0.68); EOSINOPHILS PERCENT AUTO 0 % (0-6); Hematocrit 34.1 % (33.0-51.0); Hemoglobin 10.2 g/dL (11.5-16.0); IMMATURE GRAN ABSOLUTE AUTO 0.33 K/mm3 (0.00-0.10); IMMATURE GRAN PERCENT AUTO 2 % (0-1); LYMPHOCYTES ABSOLUTE AUTO 5.29 K/mm3 (0.84-5.20); LYMPHOCYTES PERCENT AUTO 28 % (21-46); MONOCYTES ABSOLUTE AUTO 1.12 K/mm3 (0.16-1.47); MONOCYTES PERCENT AUTO 6 % (4-13); Mean Corpuscular HGB 28.7 pg (26.0-34.0); Mean Corpuscular HGB Conc 29.9 g/dL (31.5-36.5); Mean Corpuscular Volume 96 fL (80-100); Mean Platelet Volume 10.6 fL (9.1-12.4); NEUTROPHILS ABSOLUTE AUTO 11.71 K/mm3 (1.96-9.15); NEUTROPHILS PERCENT AUTO 63 % (41-73); NRBC ABSOLUTE 0.03 K/mm3 (0.00-0.02); NRBC Auto 0.2 /100 WBC (0.0-0.2); Platelet Count 249 K/mm3 (150-400); RDW Coefficient Variation 15.4 % (11.7-14.2); RDW Standard Deviation 54.2 fL (35.1-46.3); Red Blood Cell Count 3.56 M/mm3 (3.80-5.20)
[2024-03-14 02:36] LABS: U Amphetamine Screen Not Detected; U Barbituate Screen Not Detected; U Benzodiazapine Screen DETECTED; U Buprenorphine Screen Not Detected; U Cannabinoids Screen Not Detected; U Cocaine Screen Not Detected; U Methadone Screen Not Detected; U Methamphetamine Screen Not Detected; U Opiates Screen Not Detected; U Oxycodone Screen Not Detected; U Phencyclidine Screen Not Detected
[2024-03-14 02:39] LABS: D-Dimer, Quantitative 9.34 mg/L FEU (0.00-0.52); International Normalized Ratio 1.04; Prothrombin Time Results 11.1 Sec (9.7-11.5)
[2024-03-14 02:45] LABS: Base Excess Venous -14.3 mmol/L; Bicarbonate Venous 12.6 mmol/L (24.0-30.0); PCO2 Venous 91.1 mmHg (38-42); pH Blood Venous 6.91 (7.34-7.37)
[2024-03-14 02:48] LABS: Appearance, Urine Clear (Clear); Color, Urine Yellow (P-Yellow)
[2024-03-14 02:50] LABS: Alanine Aminotransfer (ALT/SGP 74 U/L (12-78); Albumin, Blood 2.8 g/dL (3.4-5.0); Albumin/Globulin Ratio 0.7 (0.8-1.8); Alk Phos 108 U/L (50-136); Anion Gap 19 mmol/L (3-11); Aspartate Aminotrans (AST/SGOT 91 U/L (12-37); Bilirubin, Total 0.6 mg/dL (0.1-1.0); Blood Urea Nitrogen 13 mg/dL (8-24); Bun/Creatinine Ratio 12.6 (12.0-20.0); CO2, Blood 20 mmol/L (21-32); Calcium, Blood 8.8 mg/dL (8.5-10.1); Chloride, Blood 107 mmol/L (98-108); Creatinine, Blood 1.03 mg/dL (0.40-1.00); Ethanol (Alcohol), Blood, Med <3 mg/dL; Globulin, Blood 3.8 g/dL (2.2-4.0); Glomerular Filtration Rate 61 (60-); Glucose, Blood 306 mg/dL (70-99); Magnesium, Blood 2.2 mg/dL (1.6-2.4); Phosphorus, Blood 7.8 mg/dL (2.5-4.9); Potassium, Blood 4.1 mmol/L (3.5-5.5); Sodium, Blood 142 mmol/L (136-145); Total Protein, Blood 6.6 g/dL (6.4-8.2)
[2024-03-14 02:57] LABS: Influenza A, PCR NEGATIVE (NEGATIVE); Influenza B, PCR NEGATIVE (NEGATIVE); Resp Syncytial Virus, PCR NEGATIVE (NEGATIVE); SARS-Cov-2 (COVID-19) PCR, MMC NEGATIVE (NEGATIVE)
[2024-03-14] MEDS ORDERED: CefTRIAXone Sodium 1,000 MG in NS 50 ML IV ONE (03:10)
[2024-03-14] MEDS ORDERED: Azithromycin 500 MG in NS 250 ML IV ONE (03:10)
[2024-03-14] MEDS ORDERED: FLU VACC TS2024-25(6MOS UP)/PF 45 MCG/0.5 ML SYRINGE IM ONE (03:30)
[2024-03-14] MEDS ORDERED: Ipratropium/Albuterol SulF 2.5-0.5MG/3 ML Amp INH PRN (03:35)
[2024-03-14] MEDS ORDERED: Cetylpyridinium Chloride 1 EA MISC MT SCH (03:35)
[2024-03-14] MEDS ORDERED: Ondansetron HCl 2 MG / ML 2ML Vial IV PRN (03:35)
[2024-03-14] MEDS ORDERED: Hydrogen Peroxide 1.5 % Solution MT SCH (04:00)
[2024-03-14] MEDS ORDERED: NS 1,000 ML IV ONE (04:56)
[2024-03-14] MEDS ORDERED: NS 500 ML IV ONE (05:05)
[2024-03-14] MEDS ORDERED: Piperacillin/Tazobactam Sod 4.5 GM in NS 100 ML IV SCH (06:00)
[2024-03-14] MEDS ORDERED: Piperacillin/Tazobactam Sod 3.375 GM in NS 100 ML IV SCH (06:00)
[2024-03-14] MEDS ORDERED: Vancomycin HCL 1,500 MG in NS 250 ML IV ONE (06:00)
[2024-03-14 06:27] LABS: Base Excess Venous -6.7 mmol/L; Bicarbonate Venous 17.8 mmol/L (24.0-30.0); PCO2 Venous 65.3 mmHg (38-42)
[2024-03-14 06:28] LABS: pH Blood Venous 7.14 (7.34-7.37)
[2024-03-14 06:50] LABS: Bun/Creatinine Ratio 15.5 (12.0-20.0); Calcium, Blood 8.4 mg/dL (8.5-10.1); Creatinine, Blood 1.1 mg/dL (0.40-1.00); Potassium, Blood 3.5 mmol/L (3.5-5.5)
--- NOTE | 2024-03-14 06:59 | NUR ---
@2271 ASSUMED CARE FROM LAURYN BENITEZ ED PATIENT ARRIVED INTUBATED VENT SETTINGS AC/VC 14/350/7/75%. VERSED INFUSING AT 2MG/HR AND FENTAYNL 10MCG/MIN. WORRELL TEMP DRAINING TO GRAVITY. 22G IV LEFT HAND, LEFT 20G AC (GOT PULLED OUT IN TRANSFERING), AND 20G RIGHT FOREARM. PAULINE SILVA AT BEDSIDE. CALL LIGHT WITHIN REACH
[2024-03-14] MEDS ORDERED: Insulin Glargine-Yfgn 100 Unit/mL 3 ML SYR SC ONE (07:00)
[2024-03-14] MEDS ORDERED: Sodium Bicarb 8.4% 1 MEQ/ML 50 ML Vial IV ONE (07:00)
[2024-03-14] MEDS ORDERED: propofoL 100 ML IV SCH (08:45)
--- NOTE | 2024-03-14 09:00 | NUR ---
ASSUMED CARE PT INTUBATED AND SEDATED, FENTANYL AND VERSED GTT INFUSING. PT RESPONSIVE TO VERBAL STIMULI, OPENING EYES TO NAME, NOT FOLLOWING COMMANDS. ON MECHANICAL FITTER, HR 80-90'S, MAPS > 65. VENT SETTINGS 16/350/7/75%, SATS IN THE LOW 90'S. L/S COARSE AND DIM IN BASES. TEMP WORRELL PATENT AND DRAINING TO GRAVITY. BM THIS AM. SON AT BEDSIDE. DR. REDMOND CONSULTED.
[2024-03-14] MEDS ORDERED: Potassium Chloride 20 MEQ/15 ML UDC PO ONE (10:00)
[2024-03-14] MEDS ORDERED: Acetaminophen 160MG / 5ML 10.15 UDC PT PRN (10:15)
[2024-03-14 10:19] LABS: Base Excess Venous -1.2 mmol/L; Bicarbonate Venous 22.8 mmol/L (24.0-30.0); PCO2 Venous 52.5 mmHg (38-42); pH Blood Venous 7.29 (7.34-7.37)
[2024-03-14 10:20] LABS: BASOPHILS ABSOLUTE AUTO 0.03 K/mm3 (0.00-0.23); BASOPHILS PERCENT AUTO 0 % (0-2); EOSINOPHILS PERCENT AUTO 0 % (0-6); Hematocrit 35.5 % (33.0-51.0); Hemoglobin 11.7 g/dL (11.5-16.0); IMMATURE GRAN PERCENT AUTO 1 % (0-1); LYMPHOCYTES ABSOLUTE AUTO 0.76 K/mm3 (0.84-5.20); LYMPHOCYTES PERCENT AUTO 4 % (21-46); MONOCYTES ABSOLUTE AUTO 0.67 K/mm3 (0.16-1.47); MONOCYTES PERCENT AUTO 3 % (4-13); Mean Corpuscular HGB 29.3 pg (26.0-34.0); Mean Platelet Volume 10.1 fL (9.1-12.4); NEUTROPHILS ABSOLUTE AUTO 18.09 K/mm3 (1.96-9.15); NEUTROPHILS PERCENT AUTO 92 % (41-73); Platelet Count 246 K/mm3 (150-400); RDW Coefficient Variation 15.4 % (11.7-14.2); RDW Standard Deviation 49.5 fL (35.1-46.3); White Blood Cell Count 19.65 K/mm3 (4.00-11.30)
[2024-03-14 10:21] LABS: Mean Corpuscular Volume 89 fL (80-100)
[2024-03-14] MEDS ORDERED: MethylPREDNISolone Sod Succ 40 MG VIAL IV SCH (10:35)
[2024-03-14] MEDS ORDERED: Lactated Ringer's 1,000 ML IV ONE ×2 (10:35→12:30)
[2024-03-14 10:58] LABS: Albumin, Blood 2.8 g/dL (3.4-5.0); Albumin/Globulin Ratio 0.8 (0.8-1.8); Bilirubin, Total 0.6 mg/dL (0.1-1.0); Bun/Creatinine Ratio 16.3 (12.0-20.0); Calcium, Blood 8.2 mg/dL (8.5-10.1); Creatinine, Blood 1.04 mg/dL (0.40-1.00); Globulin, Blood 3.6 g/dL (2.2-4.0); Potassium, Blood 3.2 mmol/L (3.5-5.5); Total Protein, Blood 6.4 g/dL (6.4-8.2)
[2024-03-14] MEDS ORDERED: Enoxaparin 40 MG/0.4 ML SYR SC SCH (11:30)
[2024-03-14] MEDS ORDERED: Pantoprazole Sodium 40 MG Injection IV SCH (11:30)
[2024-03-14] MEDS ORDERED: Potassium Chloride 20 MEQ/15 ML UDC PT ONE (12:55)
[2024-03-14 13:19] LABS: Bun/Creatinine Ratio 16.8 (12.0-20.0); Calcium, Blood 7.8 mg/dL (8.5-10.1); Creatinine, Blood 1.07 mg/dL (0.40-1.00); Potassium, Blood 3.1 mmol/L (3.5-5.5)
[2024-03-14] MEDS ORDERED: Midazolam HCl 1MG / ML 2ML Vial IV ONE (13:35)
[2024-03-14] MEDS ORDERED: Etomidate 2MG / ML 10ML Vial IV ONE (13:35)
[2024-03-14] MEDS ORDERED: Rocuronium Bromide 10 MG/ML 5ML Injection IV ONE (13:35)
[2024-03-14 14:08] LABS: BASOPHILS ABSOLUTE AUTO 0.03 K/mm3 (0.00-0.23); BASOPHILS PERCENT AUTO 0 % (0-2); EOSINOPHILS PERCENT AUTO 0 % (0-6); Hematocrit 30.7 % (33.0-51.0); Hemoglobin 10.3 g/dL (11.5-16.0); IMMATURE GRAN ABSOLUTE AUTO 0.11 K/mm3 (0.00-0.10); IMMATURE GRAN PERCENT AUTO 1 % (0-1); LYMPHOCYTES PERCENT AUTO 5 % (21-46); MONOCYTES ABSOLUTE AUTO 0.83 K/mm3 (0.16-1.47); MONOCYTES PERCENT AUTO 5 % (4-13); Mean Corpuscular HGB 29.3 pg (26.0-34.0); Mean Corpuscular HGB Conc 33.6 g/dL (31.5-36.5); Mean Corpuscular Volume 88 fL (80-100); Mean Platelet Volume 10.4 fL (9.1-12.4); NEUTROPHILS ABSOLUTE AUTO 16.38 K/mm3 (1.96-9.15); NEUTROPHILS PERCENT AUTO 90 % (41-73); Platelet Count 255 K/mm3 (150-400); RDW Coefficient Variation 15.6 % (11.7-14.2); RDW Standard Deviation 49.4 fL (35.1-46.3); Red Blood Cell Count 3.51 M/mm3 (3.80-5.20); White Blood Cell Count 18.25 K/mm3 (4.00-11.30)
[2024-03-14 15:05] LABS: Albumin, Blood 2.3 g/dL (3.4-5.0); Albumin/Globulin Ratio 0.7 (0.8-1.8); Bilirubin, Total 0.4 mg/dL (0.1-1.0); Bun/Creatinine Ratio 16.5 (12.0-20.0); Calcium, Blood 7.8 mg/dL (8.5-10.1); Creatinine, Blood 1.09 mg/dL (0.40-1.00); Globulin, Blood 3.2 g/dL (2.2-4.0); Potassium, Blood 3.7 mmol/L (3.5-5.5); Total Protein, Blood 5.5 g/dL (6.4-8.2)
--- NOTE | 2024-03-14 17:29 | NUR ---
SHIFT SUMMARY PT IS INTUBATED AND SEDATED, RESPONDS TO PAINFUL STIMULI. ON CONTINUOUS STORE PROTECTION SPECIALIST, BP SOFT, LEVO INFUSING. MAPS > 65. VENT SETTINGS- AC/VC 16/370/8/60%, SATS IN THE 90'S. L/S CLEAR. WORRELL PATENT AND DRAINING TO GRAVITY. PICC LINE IN PLACE, DRESSING CHANGED. FENT, LEVO, PROPOFOL GTTS INFUSING. SON AT BEDSIDE.
--- NOTE | 2024-03-14 21:31 | NUR ---
Assumed care of pt at 1900 Pt appears comfortable and is resting on bed. Son at bedside. Pt responds to painful stimuli and grimaces during oral care. Propofol running at 40mcg/kg/min, fentanyl at 50mcg/hr, and levophed at 6mcg/min. On vent- see rt notes for settings details. Lung sounds clear, o2 sats>95%. Pt on continuous secured entrance monitor, nsr rate of 80s. Pt stable w/ systolics in the 120s. Map>65. Pt has temp probe haider, patent w/ good urine output. Afebrile. OG tube patent and clamped. Pt has bilateral soft wrist restraints. Plan of care ongoing.
[2024-03-15] VITALS (76 sets, daily range): BP systolic 11–155; BP diastolic 36–87
[2024-03-15 01:34] LABS: Bun/Creatinine Ratio 20.3 (12.0-20.0); Creatinine, Blood 0.94 mg/dL (0.40-1.00); Potassium, Blood 3.5 mmol/L (3.5-5.5)
[2024-03-15 05:27] LABS: BASOPHILS ABSOLUTE AUTO 0.02 K/mm3 (0.00-0.23); BASOPHILS PERCENT AUTO 0 % (0-2); EOSINOPHILS PERCENT AUTO 0 % (0-6); Hematocrit 30.2 % (33.0-51.0); Hemoglobin 10.2 g/dL (11.5-16.0); IMMATURE GRAN ABSOLUTE AUTO 0.08 K/mm3 (0.00-0.10); IMMATURE GRAN PERCENT AUTO 1 % (0-1); LYMPHOCYTES ABSOLUTE AUTO 0.92 K/mm3 (0.84-5.20); LYMPHOCYTES PERCENT AUTO 6 % (21-46); MONOCYTES ABSOLUTE AUTO 0.42 K/mm3 (0.16-1.47); MONOCYTES PERCENT AUTO 3 % (4-13); Mean Corpuscular HGB 29.3 pg (26.0-34.0); Mean Corpuscular HGB Conc 33.8 g/dL (31.5-36.5); Mean Corpuscular Volume 87 fL (80-100); Mean Platelet Volume 10.2 fL (9.1-12.4); NEUTROPHILS ABSOLUTE AUTO 14.55 K/mm3 (1.96-9.15); NEUTROPHILS PERCENT AUTO 91 % (41-73); Platelet Count 235 K/mm3 (150-400); RDW Coefficient Variation 15.3 % (11.7-14.2); RDW Standard Deviation 48.8 fL (35.1-46.3); Red Blood Cell Count 3.48 M/mm3 (3.80-5.20); White Blood Cell Count 15.99 K/mm3 (4.00-11.30)
[2024-03-15 05:53] LABS: Magnesium, Blood 1.6 mg/dL (1.6-2.4)
[2024-03-15] MEDS ORDERED: Vancomycin HCL 1,000 MG in NS 250 ML IV SCH (06:00)
[2024-03-15 06:06] LABS: Albumin, Blood 2.3 g/dL (3.4-5.0); Albumin/Globulin Ratio 0.7 (0.8-1.8); Bilirubin, Total 0.5 mg/dL (0.1-1.0); Bun/Creatinine Ratio 20.5 (12.0-20.0); Creatinine, Blood 0.93 mg/dL (0.40-1.00); Globulin, Blood 3.3 g/dL (2.2-4.0); Potassium, Blood 3.5 mmol/L (3.5-5.5); Total Protein, Blood 5.6 g/dL (6.4-8.2)
[2024-03-15 06:07] LABS: Phosphorus, Blood 3.1 mg/dL (2.5-4.9)
[2024-03-15] MEDS ORDERED: Mag Sulfate 1 GM/D5% 100ML 100 ML IV STA ×2 (07:11→09:14)
[2024-03-15] MEDS ORDERED: Potassium Chl 10MEQ/Water100ML 100 ML IV ONE (07:15)
--- NOTE | 2024-03-15 07:27 | NUR ---
ASSUMED CARE OF PATIENT AT APPROXIMATELY 0700. REPORT RECEIVED FROM ZARIA GIORDANO. PT INTUBATED AND SEDATED. VENT SETTINGS A/C VC 16/370/8/35% WITH O2 SATURATION OF 100%. PROPROFOL INFUSING AT 35 MCG/KG/MIN, FENTANYL SEDATION ADJUNCT INFUSING AT 40 MCG/HR. CONTINOUS CARDIAC MONITORING IN PLACE SHOWING STACH, BP STABLE WITH MAP > 65 + LEVOPHED INFUSING AT 5 MCG/MIN. TEMP WORRELL PATENT AND DRAINING TO GRAVITY. SON AT BEDSIDE. NO ACUTE NEEDS IDENTIFIED AT THIS TIME. SEE SHIFT ASSESSMENT FOR FULL DETAILS.
[2024-03-15] MEDS ORDERED: Furosemide 10 MG/ML 4ML Vial IV ONE (09:10)
[2024-03-15] MEDS ORDERED: Potassium Chl 20MEQ/Water100ML 100 ML IV STA (09:14)
[2024-03-15 14:54] LABS: Acinetobacter baumannii DNA Not Detected copy/mL (NOT DETECT); Enterobacter cloacae DNA Not Detected copy/mL (NOT DETECT); Escherichia coli DNA Not Detected copy/mL (NOT DETECT); Haemophilus influenzae DNA Not Detected copy/mL (NOT DETECT); Klebsiella aerogenes DNA Not Detected copy/mL (NOT DETECT); Klebsiella oxytoca DNA Not Detected copy/mL (NOT DETECT); Klebsiella pneumoniae DNA Not Detected copy/mL (NOT DETECT); Moraxella catarrhalis DNA Not Detected copy/mL (NOT DETECT)
[2024-03-15 14:55] LABS: Adenovirus DNA Not Detected (NOT DETECT); Chlamydia pneumonia Not Detected (NOT DETECT); Legionella pneumophila Not Detected (NOT DETECT); Mycoplasma pneumoniae Not Detected (NOT DETECT); Proteus sp DNA Not Detected copy/mL (NOT DETECT); Pseudomonas aeruginosa DNA Not Detected copy/mL (NOT DETECT); Serratia marcescens DNA Not Detected copy/mL (NOT DETECT); Staphylococcus aureus DNA Not Detected copy/mL (NOT DETECT); Streptococcus agalactiae DNA Not Detected copy/mL (NOT DETECT); Streptococcus pneumoniae DNA Not Detected copy/mL (NOT DETECT); Streptococcus pyogenes DNA Not Detected copy/mL (NOT DETECT)
[2024-03-15 14:56] LABS: Human Coronavirus RNA Detected (NOT DETECT); Human Metapneumovirus RNA Not Detected (NOT DETECT); Influenza virus A RNA Not Detected (NOT DETECT); Influenza virus B RNA Not Detected (NOT DETECT); Parainfluenza virus RNA Not Detected (NOT DETECT); Respiratory syncytial Vir RNA Not Detected (NOT DETECT); Rhinovirus+Enterovirus RNA Detected (NOT DETECT)
[2024-03-15] MEDS ORDERED: Nystatin 100,000 Unit/ML Susp 5 ML UDC SS SCH (17:00)
--- NOTE | 2024-03-15 18:14 | NUR ---
SHIFT SUMMARY PT REMAINED INTUBATED AND SEDATED T/O ENTIRETY OF SHIFT. BRIEFLY OPENED EYES TO NOXIOUS/PAINFUL STIMULI. UNABLE TO FOLLOW COMMANDS OR MAKE PURPOSEFUL MOVEMENTS. AFEBRILE. CONTINOUS CARDIAC MONITORING IN PLACE SHOWED STACH WITH HR IN 100'S-130'S. BP STABLE, LEVOPHED TITRATED TO MAINTAIN MAP > 65. VENT SETTINGS A/C VC 16/370/8/35%. PNEUMO PANEL SENT. NO BM THIS SHIFT. OGT CLAMPED. TEMP WORRELL PATENT AND DRAINING TO GRAVITY. PROPOFOL INFUSING AT 35 MCG/KG/MIN, LEVOPHED INFUSING AT 5 MCG/MIN, FENTANYL INFUSING AT 40MCG/HR. SON AT BEDSIDE T/O ENTIRETY OF SHIFT AND FREQUENTLY UPDATED ON PLAN OF CARE. WILL CONTINUE TO MONITOR AND REPORT TO ONCOMING RN.
[2024-03-15] MEDS ORDERED: Cetylpyridinium Chloride 1 EA MISC MT SCH (20:00)
--- NOTE | 2024-03-15 20:52 | NUR ---
Assumed care of pt at 1900 Pt resting on bed, son Evan at bedside. PT opening eyes during oral care/interventions- not making eye contact. Pt asked to nod her head and shakes head "no". Pt then asked if she is in pain, again shakes head "no". Pt has fentanyl running at 40mcg/hr, propfol at 35mcg/kgmin, levophed at 4.5mcg/min. Pt on vent w/ settings unchanged- see rt notes for further details. On continuous second vp hr assessment, sinus tach- rate from 100-130s. Maps>65. Temp haider patent and draining yellow urine to gravity, good output. Pt afebrile. No bm since admission, abdomen soft. Plan of care ongoing.
[2024-03-15] MEDS ORDERED: Phenylephrine HCl in 0.9% NaCl 250 ML IV SCH (21:55)
--- NOTE | 2024-03-15 21:59 | NUR ---
DR. RENE UPDATED ON PT HR IN 130S. TELEPHONE ORDERS TO DC LEVOPHED AND START PT ON PHENYLEPHRINE, WELL ADDITIONAL LAB ORDERS.
[2024-03-15 22:33] LABS: BASOPHILS ABSOLUTE AUTO 0.02 K/mm3 (0.00-0.23); BASOPHILS PERCENT AUTO 0 % (0-2); EOSINOPHILS PERCENT AUTO 0 % (0-6); Hematocrit 30.3 % (33.0-51.0); Hemoglobin 10.3 g/dL (11.5-16.0); IMMATURE GRAN ABSOLUTE AUTO 0.12 K/mm3 (0.00-0.10); IMMATURE GRAN PERCENT AUTO 1 % (0-1); LYMPHOCYTES ABSOLUTE AUTO 0.79 K/mm3 (0.84-5.20); LYMPHOCYTES PERCENT AUTO 4 % (21-46); MONOCYTES ABSOLUTE AUTO 0.62 K/mm3 (0.16-1.47); MONOCYTES PERCENT AUTO 3 % (4-13); Mean Corpuscular HGB 29.6 pg (26.0-34.0); Mean Corpuscular Volume 87 fL (80-100); Mean Platelet Volume 10.3 fL (9.1-12.4); NEUTROPHILS ABSOLUTE AUTO 19.13 K/mm3 (1.96-9.15); NEUTROPHILS PERCENT AUTO 93 % (41-73); Platelet Count 264 K/mm3 (150-400); RDW Coefficient Variation 15.7 % (11.7-14.2); RDW Standard Deviation 49.6 fL (35.1-46.3); Red Blood Cell Count 3.48 M/mm3 (3.80-5.20); White Blood Cell Count 20.68 K/mm3 (4.00-11.30)
[2024-03-15 22:57] LABS: Bun/Creatinine Ratio 17.6 (12.0-20.0); Calcium, Blood 8.2 mg/dL (8.5-10.1); Creatinine, Blood 1.02 mg/dL (0.40-1.00); Magnesium, Blood 2.4 mg/dL (1.6-2.4); Potassium, Blood 3.5 mmol/L (3.5-5.5)
[2024-03-16] VITALS (88 sets, daily range): BP systolic 75–131; BP diastolic 48–75
--- NOTE | 2024-03-16 05:56 | NUR ---
END OF SHIFT SUMMARY PT WAS ABLE TO NOD HEAD NO DURING SHIFT, OPENED EYES FREQUENTLY DURING INTERVENTIONS. PROPOFOL AND FENTANYL INFUSION RATES UNCHANGED. PT WAS TRANSITIONED TO PHENYLEPHRINE, RUNNING AT 45MCG/MIN. PT LUNGS CLEAR, SOME THIN WHITE SECRETIONS SUCTIONED VIA ETT. VENT SETTINGS UNCHANGED. PT ON CONTINUOUS TRACK MOVING MACHINE OPERATOR, SINUS RATE OF 80S. BP STABLE W/ MAP>65. AFEBRILE. TEMP PROBE WORRELL PATENT AND DRAINING TO GRAVITY. NO BM THIS SHIFT. PT RECIEVED BED BATH AND TURNED Q2 HRS. PLAN OF CARE ONGOING
[2024-03-16 06:21] LABS: Vancomycin, Trough 15.9 ug/mL (5.0-10.0)
--- NOTE | 2024-03-16 07:54 | NUR ---
Avery of care: Patient resting comfortably on 35 mcgs of propofol & 40 mcgs of fentanyl. She arouses to voice & moves RUE to command, other extremities respond to painful stimuli. RASS -1. Coarse breath sounds on the R & diminished on the L. Blood pressures stable on 45 mcgs of phenylephrine. All other vital signs stable. Mohan patent & draining clear yellow urine. PICC infusing in all 3 ports. Son updated at bs. Will continue to monitor.
--- NOTE | 2024-03-16 13:15 | NUR ---
MD communication: Notified Dr. Gordon that pt's HR has been sustained in 130-140s since we changed over to norepi gtt. In addition, she has worsening lung sounds with increased wheeze & de-saturated to mid 80s when repositioned to the R side at 1200. See orders.
[2024-03-16] MEDS ORDERED: Ipratropium Bromide INH 0.02% 0.5 mg/2.5ML Vial INH ONE (13:25)
[2024-03-16] MEDS ORDERED: Magnesium Sulf 2 GM/Water 50ML 50 ML IV ONE (13:25)
[2024-03-16] MEDS ORDERED: Magnesium Hydroxide Conc 10 ML UDC PT PRN (14:20)
[2024-03-16] MEDS ORDERED: Docusate Sodium 100 MG UDC PT PRN (14:20)
[2024-03-16] MEDS ORDERED: Bisacodyl 10 MG Supp PR PRN (14:20)
--- NOTE | 2024-03-16 17:44 | NUR ---
Shift summary: Fentanyl gtt turned off per Dr. Gordon at 0955. Became more arousable & followed commands with bilat LE & RUE. Spontaneous movement noted in LUE but nothing to command. Tmax 100.1. HR up to 140s with norepi gtt - Dr. Gordon notified - orders to switch back to phenylephrine gtt - HR back down to 110 range. Phenylephrine gtt currently at 30 mcgs. Urine output diminished, Dr. Gordon aware with no interventions ordered. Tube feeds initiated per product communications manager. Lung sounds remain coarse/wheezy throughout. PEEP 5/FiO2 40%. Will continue to monitor.
[2024-03-16] MEDS ORDERED: FentaNYL Citrate 50 MCG/ML 2 ML Injection IV PRN (20:00)
[2024-03-17] VITALS (79 sets, daily range): BP systolic 89–138; BP diastolic 51–96
[2024-03-17 06:17] LABS: BASOPHILS ABSOLUTE AUTO 0.02 K/mm3 (0.00-0.23); BASOPHILS PERCENT AUTO 0 % (0-2); EOSINOPHILS PERCENT AUTO 0 % (0-6); Hemoglobin 9.1 g/dL (11.5-16.0); IMMATURE GRAN ABSOLUTE AUTO 0.13 K/mm3 (0.00-0.10); IMMATURE GRAN PERCENT AUTO 1 % (0-1); LYMPHOCYTES ABSOLUTE AUTO 2.08 K/mm3 (0.84-5.20); LYMPHOCYTES PERCENT AUTO 14 % (21-46); MONOCYTES ABSOLUTE AUTO 0.86 K/mm3 (0.16-1.47); MONOCYTES PERCENT AUTO 6 % (4-13); Mean Corpuscular HGB 29.4 pg (26.0-34.0); Mean Corpuscular HGB Conc 33.7 g/dL (31.5-36.5); Mean Corpuscular Volume 87 fL (80-100); Mean Platelet Volume 10.4 fL (9.1-12.4); NEUTROPHILS ABSOLUTE AUTO 11.95 K/mm3 (1.96-9.15); NEUTROPHILS PERCENT AUTO 80 % (41-73); Platelet Count 257 K/mm3 (150-400); RDW Standard Deviation 51.2 fL (35.1-46.3); White Blood Cell Count 15.04 K/mm3 (4.00-11.30)
--- NOTE | 2024-03-17 06:35 | NUR ---
SHIFT SUMMERY PT REMAINS INTUBATED VIA ETT. NODS HEAD YES/NO TO QUESTIONS. PT IS VERY WEAK. TF INFUSING VIA OF TUBE AT GOAL, PT TOLERATING WELL. WORRELL CATH INTACT PATENT AND DRAINING. PT IS SR, NEOSYNEPHRINE FOR MAP >65. PT HAS HAD NO ACUTE CHANGES OVERNIGHT.
[2024-03-17 06:47] LABS: Albumin, Blood 2.2 g/dL (3.4-5.0); Albumin/Globulin Ratio 0.7 (0.8-1.8); Bilirubin, Total 0.3 mg/dL (0.1-1.0); Bun/Creatinine Ratio 27.5 (12.0-20.0); Creatinine, Blood 0.95 mg/dL (0.40-1.00); Globulin, Blood 3.1 g/dL (2.2-4.0); Magnesium, Blood 2.7 mg/dL (1.6-2.4); Phosphorus, Blood 1.7 mg/dL (2.5-4.9); Potassium, Blood 3.5 mmol/L (3.5-5.5); Total Protein, Blood 5.3 g/dL (6.4-8.2)
[2024-03-17] MEDS ORDERED: Multivitamins-Minerals Liquid 15 ML Oral Syringe PT SCH (09:00)
[2024-03-17] MEDS ORDERED: Ipratropium/Albuterol SulF 2.5-0.5MG/3 ML Amp INH SCH (09:20)
[2024-03-17] MEDS ORDERED: Potassium Phosphate Dibasic 30 MM in Dextrose 5% 500 ML IV STA (09:25)
[2024-03-17] MEDS ORDERED: Furosemide 10 MG / ML 2ML Vial IV ONE (10:00)
[2024-03-17] MEDS ORDERED: Metolazone 5 MG Tab PT ONE (10:00)
[2024-03-17] MEDS ORDERED: Albuterol 2.5 MG/3 ML VIAL INH SCH (14:20)
[2024-03-17] MEDS ORDERED: Albuterol 2.5 MG/3 ML VIAL INH ONE (14:25)
--- NOTE | 2024-03-17 18:45 | NUR ---
Summary. Pt rested in bed throughout shift. Extubated at approximately 1030 this morning to 4 l/min NC with good effect. Neosynephrine still infusing. Pt tolerating PO sips of water well. PRN pain medication used with good effect for chest pain related to compressions. Son at bedside most of shift, updated regularly. VS stable. See chart for further details.
[2024-03-18] VITALS (29 sets, daily range): BP systolic 95–128; BP diastolic 60–73
--- NOTE | 2024-03-18 01:14 | NUR ---
PT W/INCREASED WORK OF BREATHING AND WEAK COUGH EFFORT. DR COBOS NOTIFIED. BIPAP ORDERED. PT PLACED ON BIPAP BY RT GARCIA. TOLERATING TREATMENT AT THIS TIME.
[2024-03-18 01:18] LABS: Base Excess Venous 1.8 mmol/L; Bicarbonate Venous 25.4 mmol/L (24.0-30.0); PCO2 Venous 47.1 mmHg (38-42); pH Blood Venous 7.37 (7.34-7.37)
[2024-03-18 04:05] LABS: Bicarbonate Venous 25.7 mmol/L (24.0-30.0); PCO2 Venous 44.1 mmHg (38-42); pH Blood Venous 7.39 (7.34-7.37)
[2024-03-18 04:10] LABS: BASOPHILS ABSOLUTE AUTO 0.02 K/mm3 (0.00-0.23); BASOPHILS PERCENT AUTO 0 % (0-2); EOSINOPHILS PERCENT AUTO 0 % (0-6); Hematocrit 28.8 % (33.0-51.0); Hemoglobin 9.5 g/dL (11.5-16.0); IMMATURE GRAN ABSOLUTE AUTO 0.17 K/mm3 (0.00-0.10); IMMATURE GRAN PERCENT AUTO 1 % (0-1); LYMPHOCYTES ABSOLUTE AUTO 2.14 K/mm3 (0.84-5.20); LYMPHOCYTES PERCENT AUTO 18 % (21-46); MONOCYTES ABSOLUTE AUTO 0.85 K/mm3 (0.16-1.47); MONOCYTES PERCENT AUTO 7 % (4-13); Mean Corpuscular HGB 28.7 pg (26.0-34.0); Mean Corpuscular Volume 87 fL (80-100); Mean Platelet Volume 9.8 fL (9.1-12.4); NEUTROPHILS PERCENT AUTO 74 % (41-73); Platelet Count 232 K/mm3 (150-400); RDW Standard Deviation 51.1 fL (35.1-46.3); Red Blood Cell Count 3.31 M/mm3 (3.80-5.20); White Blood Cell Count 12.18 K/mm3 (4.00-11.30)
--- NOTE | 2024-03-18 04:11 | NUR ---
PT PLACED ON 2L NC BY JOSE RT, TOLERATING WELL
[2024-03-18 04:35] LABS: Magnesium, Blood 2.5 mg/dL (1.6-2.4)
--- NOTE | 2024-03-18 05:16 | NUR ---
SHIFT SUMMERY PT IS ALERT AND ORIENTED X4, SIGNIFICANT WEAKNESS. PT DID REQUIRE BIPAP FOR A SHORT AMOUNT OF TIME DUE TO FATIGUE BUT STILL REMAINED STABLE AND WAS IN NO ACUTE DISTRESS. OXYGEN SAT HAVE REMAINED >92%. PT NEOSYNEPHRINE GTT HAS BEEN OFF SINCE 1AM, BP MAPS ARE >65. AFEBRILE. WORRELL CATH INTACT PATENT AND DRAINING TO GRAVITY YELLOW URINE. PAIN MEDICATION GIVEN PER EMAR NEEDED.
[2024-03-18 05:32] LABS: Alanine Aminotransfer (ALT/SGP 85 U/L (12-78); Albumin, Blood 2.7 g/dL (3.4-5.0); Albumin/Globulin Ratio 0.8 (0.8-1.8); Alk Phos 73 U/L (50-136); Anion Gap 10 mmol/L (3-11); Aspartate Aminotrans (AST/SGOT 43 U/L (12-37); Bilirubin, Total 0.6 mg/dL (0.1-1.0); Blood Urea Nitrogen 21 mg/dL (8-24); Bun/Creatinine Ratio 19.8 (12.0-20.0); CO2, Blood 26 mmol/L (21-32); Calcium, Blood 8.7 mg/dL (8.5-10.1); Chloride, Blood 113 mmol/L (98-108); Creatinine, Blood 1.06 mg/dL (0.40-1.00); Globulin, Blood 3.5 g/dL (2.2-4.0); Glomerular Filtration Rate 59 (60-); Glucose, Blood 98 mg/dL (70-99); Phosphorus, Blood 4.2 mg/dL (2.5-4.9); Potassium, Blood 4.2 mmol/L (3.5-5.5); Sodium, Blood 145 mmol/L (136-145); Total Protein, Blood 6.2 g/dL (6.4-8.2); Vancomycin, Trough 21.3 ug/mL (5.0-10.0)
--- NOTE | 2024-03-18 05:36 | NUR ---
CRITCAL MATEO ROLAND CALLED TO MARYANN REY
[2024-03-18] MEDS ORDERED: Vancomycin HCL 750 MG in NS 250 ML IV SCH (06:00)
[2024-03-18] MEDS ORDERED: OxyCODONE 5 mg/Acetamin 325 mg TABLET PO PRN (11:40)
[2024-03-18] MEDS ORDERED: Budesonide 0.5 MG/2 ML RESP INH SCH (13:00)
[2024-03-18] MEDS ORDERED: Metolazone 5 MG Tab PO ONE (13:00)
[2024-03-18] MEDS ORDERED: MethylPREDNISolone Sod Succ 40 MG VIAL IV ONE (13:00)
[2024-03-18] MEDS ORDERED: Furosemide 10 MG / ML 2ML Vial IV SCH (13:00)
--- NOTE | 2024-03-18 13:05 | NUR ---
PT TRANSFERED TO PCU 20 FROM ICU 01, REPORT FROM STEPHANIE ENCISO TO THIS BOX STRAPPER. THE PT ARRIVED TO THE ROOM VIA RECLINER. SHE IS ON 4L NC AT THIS TIME. PT IS WHEEZY BUT DENIES SOB. ON TELE SHE IS SR 80'S, BP STABLE. PT STATES THAT HER PAIN IN HER STERNUM AND RIBS ARE TOLERABLE WITH PAIN 2/10. THE PT IA DROWSY BUT ORIENTEDX4. SHE HAS A WORRELL DRAINING CLEAR YELLOW URINE TO GRAVITY. THE PT'S SON RICARDO ACCOMPANIED THE PT TO THE ROOM .THE PT IS ON DROPLET PERCAUTIONS AT THIS TIME FOR RHINO AND COVID. A DNR BRACELETE WAS PLACED ON THE PT'S RIGHT WRIST AND DNR ORDER WAS CONFIRMED WITH MINA ENCISO. SEE NOTES FOR UPDATES.
--- NOTE | 2024-03-18 13:50 | NUR ---
Transfer. Pt moved to PCU 20 at approximately 1245. Report given to RN assuming care. Pt vitals stable at time of transport. All personal belongings sent with patient, son accompanied pt to new room. See chart for further details.
--- NOTE | 2024-03-18 16:33 | NUR ---
SHIFT SUMMARY THE PT WAS AN ICU TRANSFER THIS AFTERNOON. SEE PREVIOUS NOTE. SHE REMAINS DROWSY BUT ORIENTED X4. SHE IS CURRENTLY ON 4L NC AND HAS CONTINUED WEEZING. HER COUGH IS WEAK AND HAS SCANT THICK HARRIS/YELL OUTPUT. ON TELE SHE IS RUNNING SR AND HER BLOOD PRESSURE IS STABLE. SHE IS A LIFT PT AND AQ2 TURN D/T DECONDITIONING. THE PT HAS BEEN IN THE RECLINER MAJORITY OF THE SHIFT. SHE HAS A TEMP WORRELL DRAINING TO GRAVITY. NO ACUTE EVENTS THIS SHIFT. SEE NOTES FOR ANY UPDATES.
[2024-03-19 03:44] VITALS: BP 114/64
[2024-03-19 03:55] LABS: BASOPHILS ABSOLUTE AUTO 0.03 K/mm3 (0.00-0.23); BASOPHILS PERCENT AUTO 0 % (0-2); EOSINOPHILS PERCENT AUTO 0 % (0-6); Hematocrit 28.7 % (33.0-51.0); Hemoglobin 9.7 g/dL (11.5-16.0); IMMATURE GRAN ABSOLUTE AUTO 0.26 K/mm3 (0.00-0.10); IMMATURE GRAN PERCENT AUTO 2 % (0-1); LYMPHOCYTES ABSOLUTE AUTO 2.31 K/mm3 (0.84-5.20); LYMPHOCYTES PERCENT AUTO 19 % (21-46); MONOCYTES ABSOLUTE AUTO 0.87 K/mm3 (0.16-1.47); MONOCYTES PERCENT AUTO 7 % (4-13); Mean Corpuscular HGB 29.5 pg (26.0-34.0); Mean Corpuscular HGB Conc 33.8 g/dL (31.5-36.5); Mean Corpuscular Volume 87 fL (80-100); Mean Platelet Volume 10.4 fL (9.1-12.4); NEUTROPHILS ABSOLUTE AUTO 8.92 K/mm3 (1.96-9.15); NEUTROPHILS PERCENT AUTO 72 % (41-73); Platelet Count 224 K/mm3 (150-400); RDW Coefficient Variation 15.9 % (11.7-14.2); RDW Standard Deviation 51.1 fL (35.1-46.3); Red Blood Cell Count 3.29 M/mm3 (3.80-5.20); White Blood Cell Count 12.39 K/mm3 (4.00-11.30)
[2024-03-19 04:14] LABS: Albumin, Blood 2.7 g/dL (3.4-5.0); Albumin/Globulin Ratio 0.8 (0.8-1.8); Bilirubin, Total 0.5 mg/dL (0.1-1.0); Bun/Creatinine Ratio 24.5 (12.0-20.0); Calcium, Blood 9.2 mg/dL (8.5-10.1); Creatinine, Blood 1.06 mg/dL (0.40-1.00); Globulin, Blood 3.5 g/dL (2.2-4.0); Magnesium, Blood 2.1 mg/dL (1.6-2.4); Phosphorus, Blood 4.5 mg/dL (2.5-4.9); Potassium, Blood 4.2 mmol/L (3.5-5.5); Total Protein, Blood 6.2 g/dL (6.4-8.2)
[2024-03-19 08:16] VITALS: BP 111/71
[2024-03-19] MEDS ORDERED: MethylPREDNISolone Sod Succ 40 MG VIAL IV SCH (09:00)
[2024-03-19] MEDS ORDERED: Loperamide HCl 2 MG Cap PO PRN (09:25)
[2024-03-19] MEDS ORDERED: Benzonatate 100 MG Cap PO PRN (09:25)
[2024-03-19 11:04] VITALS: BP 106/61
[2024-03-19 15:19] VITALS: BP 123/69
--- NOTE | 2024-03-19 16:31 | NUR ---
SHIFT SUMMARY THE PT IS A&OX4, CALLS Berg, AND IS A 2P MOD ASSIST FOR PIVOT TRANSFERS. THE P.T. WORKED WITH PT TODAY AND HAS BEEN UP IN THE CHAIR MAJORITY OF THE DAY. THE PT PREFERS TO BE IN THE CHAIR IT IS MORE COMFORTABLE WITH HER STERNUM/RIB PAIN, AND HER BREATHING. THE PT HAS BEEN TITRAITED TO 1L NC FROM 4LNC. SHE DOES HAVE COUGHING EPISODES AND WAS STARTED ON TESSLON PEARLS. SHE HAS BEEN HAVING LOOSE STOOLS AND WAS GIVEN IMMODIUM PER EMAR. THE PT HAS BEEN USING A PILLOW TO SPLINT HER CHEST TO HELP WITH PAIN AND WAS MEDICATED PER EMAR FOR PAIN. ON TELE THE PT HAS BEEN SR. SHE HAS BEEN DOING MULTIPLE DIFFERENT ACITIVIES TO INCREASE HER STRENGTH AND HAS BEEN USING HER FLUTTER VALVE AND INCENTIVE SPIROMETER. SHE HAS A WORRELL DRAINING TO GRAVITY. THE PT IS NOW MEDICAL STATUS W/O TELE. NO ACUTE EVENTS. SEE NOTES FOR UPDATES.
[2024-03-19 19:52] VITALS: BP 124/70
[2024-03-19 23:09] VITALS: BP 126/69
[2024-03-20 04:40] VITALS: BP 130/66
[2024-03-20 05:49] LABS: BASOPHILS ABSOLUTE AUTO 0.01 K/mm3 (0.00-0.23); BASOPHILS PERCENT AUTO 0 % (0-2); EOSINOPHILS ABSOLUTE AUTO 0.01 K/mm3 (0.00-0.68); EOSINOPHILS PERCENT AUTO 0 % (0-6); Hematocrit 28.1 % (33.0-51.0); Hemoglobin 9.5 g/dL (11.5-16.0); IMMATURE GRAN ABSOLUTE AUTO 0.29 K/mm3 (0.00-0.10); IMMATURE GRAN PERCENT AUTO 2 % (0-1); LYMPHOCYTES ABSOLUTE AUTO 2.17 K/mm3 (0.84-5.20); LYMPHOCYTES PERCENT AUTO 16 % (21-46); MONOCYTES ABSOLUTE AUTO 1.02 K/mm3 (0.16-1.47); MONOCYTES PERCENT AUTO 8 % (4-13); Mean Corpuscular HGB 29.3 pg (26.0-34.0); Mean Corpuscular HGB Conc 33.8 g/dL (31.5-36.5); Mean Corpuscular Volume 87 fL (80-100); Mean Platelet Volume 10.7 fL (9.1-12.4); NEUTROPHILS ABSOLUTE AUTO 10.07 K/mm3 (1.96-9.15); NEUTROPHILS PERCENT AUTO 74 % (41-73); NRBC ABSOLUTE 0.02 K/mm3 (0.00-0.02); NRBC Auto 0.1 /100 WBC (0.0-0.2); Platelet Count 252 K/mm3 (150-400); RDW Coefficient Variation 15.9 % (11.7-14.2); RDW Standard Deviation 49.8 fL (35.1-46.3); Red Blood Cell Count 3.24 M/mm3 (3.80-5.20); White Blood Cell Count 13.57 K/mm3 (4.00-11.30)
[2024-03-20 06:18] LABS: Magnesium, Blood 1.7 mg/dL (1.6-2.4)
[2024-03-20 06:19] LABS: Anion Gap 10 mmol/L (3-11); Blood Urea Nitrogen 19 mg/dL (8-24); Bun/Creatinine Ratio 18.1 (12.0-20.0); CO2, Blood 28 mmol/L (21-32); Calcium, Blood 9.4 mg/dL (8.5-10.1); Chloride, Blood 107 mmol/L (98-108); Creatinine, Blood 1.05 mg/dL (0.40-1.00); Glomerular Filtration Rate 59 (60-); Glucose, Blood 92 mg/dL (70-99); Phosphorus, Blood 4.2 mg/dL (2.5-4.9); Potassium, Blood 3.6 mmol/L (3.5-5.5); Sodium, Blood 141 mmol/L (136-145); Vancomycin, Trough 17.5 ug/mL (5.0-10.0)
--- NOTE | 2024-03-20 06:51 | NUR ---
PT O2 REQUIREMENT INCREASED SLIGHTLY AT END OF SHIFT PT GOING FROM 1.5L TO 3L O2 TO MAINTAIN O2 SAT GREATER THAN 93%. PT HAS NO C/O DYSPNEA OR CHEST PAIN WITH CONCERNS FOR CARDIAC INVOLVEMENT. PT DOES C/O CHEST WALL PAIN D/T CPR WITH IT BEING WELL CONTROLLED ON APAP. PT WORRELL CONTINUES TO HAVE GOOD OUTPUT, URINE CLEAR AND LIGHT YELLOW. PT SLEPT IN THE RECLINER PER REQUEST. PT DOES HAVE WEAK EFFORT ON INCENTIVE SPIROMETRY AND FLUTTER VALVE USE. CHEST WALL PAIN IS WORSE WITH COUGHING. PT WAS MEDICATED FOR COUGH X1 AND LOOSE STOOL X1. PT REMAINS IN DROPLET PRECAUTIONS D/T RHINOVIRUS AND CORONAVIRUS POSITIVE TEST RESULTS. IV ABX INFUSING THROUGH PICC LINE W/O PROBLEM. PICC FLUSHES AND DRAWS WELL, AM LABS SENT. PICC DRESSING CLEAN/DRY/INTACT.
[2024-03-20 07:50] VITALS: BP 141/70
[2024-03-20 11:46] VITALS: BP 103/64
--- NOTE | 2024-03-20 13:41 | NUR ---
NOON ASSESSMENT NO CHANGES TO REPORT SINCE AM ASSESSMENT. PT DOES REPORT FEELING MORE TIRED SINCE THIS MORINING. MOVEMENT IS SLOWER BUT PT IS STILL ABLE TO TRANSFER FROM CHAIR TO BEDSIDE COMMODE.
[2024-03-20] MEDS ORDERED: NS 250 ML IV PRN (15:10)
[2024-03-20 15:45] VITALS: BP 113/59
[2024-03-20] MEDS ORDERED: Empagliflozin 10 MG TAB PO SCH (16:00)
[2024-03-20] MEDS ORDERED: Metoprolol Succinate 25 MG TABCR PO SCH (16:00)
--- NOTE | 2024-03-20 17:03 | NUR ---
SHIFT SUMMARY PT REMAINS ON 2-3L O2 VIA NC AT REST. PT HAS NEEDED INCREASED O2 WITH ACTIVITY, UP TO 6L. ON 6L PT IS ABLE TO MAINTAIN SATURATIONS WITH ACTIVITY, SATURATIONS DROP TO LOW 80'S IF PT REMAINS ON 2-3L DURING ACTIVITY. PT HAS A MOIST, NON-PRODUCTIVE COUGH, SATURATIONS DROP WHEN PT COUGHS. TESSLON PEARLS GIVEN FOR COUGH. PT IS A 1-2 ASSIST FOR TRANSFERS. PT HAS BEEN UP TO THE RECLINER THIS SHIFT. PT USING THE [facility] FOR TOILETING. PAIN MANAGED WITH PERCOCET AND TYLENOL. PT CALLS APPROPRIATELY.
[2024-03-20 20:35] VITALS: BP 107/61
[2024-03-21 04:22] VITALS: BP 112/68
[2024-03-21 04:39] LABS: Hematocrit 29.2 % (33.0-51.0); Hemoglobin 9.8 g/dL (11.5-16.0); Mean Corpuscular HGB 29.3 pg (26.0-34.0); Mean Corpuscular HGB Conc 33.6 g/dL (31.5-36.5); Mean Corpuscular Volume 87 fL (80-100); Mean Platelet Volume 10.2 fL (9.1-12.4); NRBC ABSOLUTE 0.02 K/mm3 (0.00-0.02); NRBC Auto 0.1 /100 WBC (0.0-0.2); Platelet Count 243 K/mm3 (150-400); RDW Coefficient Variation 16.1 % (11.7-14.2); RDW Standard Deviation 51.1 fL (35.1-46.3); Red Blood Cell Count 3.35 M/mm3 (3.80-5.20); White Blood Cell Count 14.17 K/mm3 (4.00-11.30)
[2024-03-21 05:18] LABS: Bun/Creatinine Ratio 12.5 (12.0-20.0); Calcium, Blood 9.3 mg/dL (8.5-10.1); Creatinine, Blood 1.04 mg/dL (0.40-1.00); Potassium, Blood 3.2 mmol/L (3.5-5.5)
[2024-03-21] MEDS ORDERED: Potassium Chloride 20 MEQ TabCR PO ONE (06:04)
--- NOTE | 2024-03-21 06:07 | NUR ---
PT STABLE THROUGHOUT THE SHIFT. PT OOB TO RECLINER FOR SHIFT PER PT REQUEST. VITAL SIGNS STABLE WNL. NO C/O CP/SOB. WORRELL IN PLACE AND CONTINUES TO DRAIN WELL. PT CONTINUEST TO TOLERATE IV ABX INFUSION W/O PROBLEM. ALL PICC LINES FLUSH AND DRAW BLOOD. PT AOX4, USES CALL LIGHT APPROPRIATELY AND MAKES NEEDS KNOWN. PT MEDICATED FOR COUGH X1. NO BM OVER NIGHT. PT ENDORSES MILD CHEST WALL PAIN BUT DID NOT WANT/NEED PAIN MEDICATIONS DURING SHIFT. PT DOES EXPRESS CONCERN ABOUT NOT BEING ON HOME ANTI-DEPRESSANT, WILL RELAY TO NEXT SHIFT.
--- NOTE | 2024-03-21 06:42 | NUR ---
PT WOKE UP TO TAKE POTASSIUM REPLETION AND C/O OF 6/10 CHEST WALL RIB PAIN AND WAS MEDICATED FOR THAT, SEE MAR.
[2024-03-21 08:22] VITALS: BP 116/66
--- NOTE | 2024-03-21 09:25 | NUR ---
Pt was encouraged to use the incentive spirometer while I listened to her lung sounds. Barely gets the 500cc brenton, lung sounds are coarse and cough is weak. She is sitting up in the chair. Encouraged ongoing use of IS and flutter valve. Pt verbalized that she was encouraged to notify staff when she has pain. Last pain pill was 2 hours ago,ordered prn q6h.
[2024-03-21] MEDS ORDERED: FLUoxetine HCL 20 MG CAP PO SCH (10:00)
[2024-03-21 11:49] VITALS: BP 112/70
--- NOTE | 2024-03-21 16:38 | NUR ---
Pt woke up briefly, states that her pain is 5/10 and tolerable. IV zosyn infusing at this time. Earlier pt was incontinent of loose brown stool, called for help but said that she couldn't help the incotinence. Assisted up to vitaly FERGUSON dc'kellen after bladder training had been ongoing since 0900 this am. Given complete sponge bath, and assisted back to recliner at her request.
[2024-03-21] MEDS ORDERED: Losartan Potassium 25 MG Tab PO SCH (21:00)
[2024-03-21 21:07] VITALS: BP 104/65
--- NOTE | 2024-03-21 22:56 | NUR ---
REPORT GIVEN TO GEMINI TORRES RN FOR ASSUMPTION OF CARE. PATIENT BEING TRANSFERRED TO ROOM 341 FROM PCU 20.
[2024-03-22 02:54] VITALS: BP 105/69
[2024-03-22 05:21] LABS: Hematocrit 30.4 % (33.0-51.0); Mean Corpuscular HGB Conc 32.9 g/dL (31.5-36.5); Mean Corpuscular Volume 88 fL (80-100); Mean Platelet Volume 10.4 fL (9.1-12.4); Platelet Count 250 K/mm3 (150-400); RDW Coefficient Variation 16.2 % (11.7-14.2); RDW Standard Deviation 51.9 fL (35.1-46.3); Red Blood Cell Count 3.45 M/mm3 (3.80-5.20); White Blood Cell Count 11.29 K/mm3 (4.00-11.30)
[2024-03-22 05:45] LABS: Bun/Creatinine Ratio 11.2 (12.0-20.0); Calcium, Blood 9.4 mg/dL (8.5-10.1); Creatinine, Blood 0.98 mg/dL (0.40-1.00); Potassium, Blood 3.7 mmol/L (3.5-5.5)
--- NOTE | 2024-03-22 06:25 | NUR ---
Shift Summary Pt transferred to this unit from PCU. She is on 2L O2 and continuous O2 monitor, no desaturation events t/o the night. She is positive for coronavirus, droplet isolation in place. Pt recently had Mohan removed 03/21 and had one large void before transfering to this unit, no voids yet since she arrived here. Plan is to do a barium swallow study because she was recently extubated on 03/18. Once medically stable dishcharge to SNF.
[2024-03-22 07:20] VITALS: BP 108/68
[2024-03-22] MEDS ORDERED: Potassium Chloride 20 MEQ TabCR PO ONE (07:45)
[2024-03-22] MEDS ORDERED: Mometasone/Formoterol MDI 100/5 mcg 13 GM INH SCH (07:50)
[2024-03-22] MEDS ORDERED: Multivitamins 1 Tab PO SCH (09:00)
[2024-03-22 15:37] VITALS: BP 119/67
--- NOTE | 2024-03-22 17:07 | NUR ---
SHIFT SUMMARY PT AO3/4, COOPERATIVE, ABLE TO MAKE NEEDS KNOWN. PT HAS BEEN IN RECLINER FOR MOST OF THE DAY. OXYGEN ON AT ALL TIMES. USING COMMODE/BATHRROM PROPERLY. THIS RN CHANGED PICC LINE DRESSING TODAY WITHOUT ISSUES. PT IS CONTENT. NO OTHER EVENTS TOOK PLACE. BED IN LOWEST POSITION, CALL LIGHT WITHN REACH.
[2024-03-22 20:12] VITALS: BP 111/62
[2024-03-23] MEDS ORDERED: Ipratropium/Albuterol SulF 2.5-0.5MG/3 ML Amp INH PRN (04:15)
--- NOTE | 2024-03-23 04:30 | NUR ---
SHIFT SUMMARY 63 YR F ADMITTED ON 03/14/24. DNR. NO ACUTE CHANGES THIS SHIFT. PT C/O POST CPR RIB PAIN AND MEDICATED PER EMAR. MAINTAINING SATS ON 2 L O2. PT APPEARS TO HAVE RESTED COMFORTABLY T/O THE NIGHT. NO NEW EVENTS TO REPORT. BED IN LOW POSITION AND CALL LIGHT IN REACH.
[2024-03-23 05:58] VITALS: BP 103/65
[2024-03-23 07:56] VITALS: BP 112/66
[2024-03-23] MEDS ORDERED: Sodium Chloride For Inhalation 7% 4 ML VIAL.NEB INH SCH (09:00)
[2024-03-23] MEDS ORDERED: OxyCODONE 5 mg/Acetamin 325 mg TABLET PO PRN (09:10)
[2024-03-23] MEDS ORDERED: Acetaminophen 325 MG TABLET PO PRN (12:45)
[2024-03-23 15:33] VITALS: BP 102/60
--- NOTE | 2024-03-23 16:30 | NUR ---
SHIFT SUMMARY PT AO4, COOPERATIVE, ABLE TO MAKE NEEDS KNOWN. PT COMPLAINS OF PAIN, MEDICATE PER EMAR. 2L O2 SILL ACTIVE. AWAITING POSSIBLE DC ON WEDNESDAY, WAITING SNF APPROVAL.
[2024-03-23 19:32] VITALS: BP 116/62
[2024-03-24 02:38] VITALS: BP 96/54
--- NOTE | 2024-03-24 04:42 | NUR ---
SHIFT SUMMARY 63 YR F ADMITTED ON 03/14/24. DNR. NO ACUTE CHANGES THIS SHIFT. PT C/O RIB PAIN AND MEDICATED PER EMAR. MAINTAINING O2 SATS ON 2L NC. SHE HAS SLEPT FOR MOST OF THE NIGHT. NO COUGHING HEARD FROM PT. NOTHING NEW TO REPORT. BED IN LOW POSITION AND CALL LIGHT IN REACH.
[2024-03-24 07:32] VITALS: BP 96/56
[2024-03-24 16:04] VITALS: BP 96/59
--- NOTE | 2024-03-24 17:17 | NUR ---
SHIFT SUMMARY PT CONT LEVEL OF CARE WITH NO ACUTE CHANGES NOTED. PT IS A&OX4 AND ASSIST X1 WITH AMBULATION. PT CONT TO UTILIZE 2L/NC. CASE MANAGEMENT IS STILL WORKING ON SAFE DC PLAN.
[2024-03-24 20:56] VITALS: BP 115/61
[2024-03-25 03:26] VITALS: BP 114/59
--- NOTE | 2024-03-25 04:20 | NUR ---
SHIFT SUMMARY PATIENT HAD NO ACUTE CHANGES. AXOX 4 AND ONE ASSIST TO BSC. PIV INTACT. TELE MONITOR NSR 92. ON 2L O2 NC AND RA BASELINE. RT IN FOR BREATHING TX. DENIES CHEST PAIN, SOB, AND N/V. VSS/AFEBRILE. REPORTED RIB PAIN X ONE AND PERCOCET GIVEN PER EMAR. SLEPT MOST OF THE SHIFT. CALL LIGHT IN REACH. BED IN LOWEST POSITION. WILL CONTINUE TO MONITOR UNTIL DAY SHIFT NURSE ASSUMES CARE.
[2024-03-25 07:59] VITALS: BP 122/66
[2024-03-25 15:47] VITALS: BP 102/61
--- NOTE | 2024-03-25 17:19 | NUR ---
SHIFT REPORT: PATIENT A/O X 4. PATIENT HAS BEEN UP IN CHAIR MOST OF THE DAY HOWEVER NEEDS TO BE ENCOURAGED TO DO DEEP BREATHING EXCERCISES. PATIENT CURRENT ON 1-2L OXYGEN NC. PATIENT ABLE TO STAND AND WALK WITH SBA. PATIENT DISCHARGE IS UNCLEAR DUE TO INSURANCE ISSUES, PATIENT HAS RECOMMENDATIONS OF HOME HEALTH HOWEVER DOES NOT QUALIFY VIA INSURANCE IN [place].
[2024-03-25 20:04] VITALS: BP 93/60
--- NOTE | 2024-03-26 04:27 | NUR ---
SHIFT SUMMARY PATIENT HAD NO ACUTE CHANGES. AXO X4 AND ONE ASSIST TO BSC. PICC LINE RU ARM INTACT. ON 2L O2 NC. DENIES CHEST PAIN, SOB, AND N/V. VSS/AFEBRILE. SPOUSE PRESENT FIRST PART OF SHIFT. CALL LIGHT IN REACH. BED IN LOWEST POSITION. WILL CONTINUE TO MONITOR UNTIL DAY SHIFT NURSE ASSUMES CARE.
[2024-03-26 04:35] VITALS: BP 123/62
[2024-03-26 07:42] VITALS: BP 104/61
[2024-03-26] MEDS ORDERED: Miconazole Nitrate 2% 85 GM PWD TOP SCH (09:00)
--- NOTE | 2024-03-26 10:03 | NUR ---
DR ARGUETA CONTACTED AND ADVISED [facility]O DUE TO BP 104/[address] ARGUETA OK TO HOLD MED
[2024-03-26] MEDS ORDERED: OxyCODONE 5 mg/Acetamin 325 mg TABLET PO PRN (12:50)
--- NOTE | 2024-03-26 17:04 | NUR ---
SHIFT REPORT: PATIENT A/O X 4. PATIENT ON 3L O2 VIA NC. PATIENT WAS ABLE TO SHOWER TODAY AND WALKED TO SHOWER WITH 1 ASSIST. PATIENT USES FWW TO AMBULATE WITH OXYGEN ON. PATIENT HAS NOTED RASH IN GROIN AREA WHICH IS BEING TREATED WITH ANTIFUNGAL POWEDER. PATIENT DID NOT EAT MUCH OF HER LUNCH TODAY HOWEVER DID DRINK PROTEIN SHAKE WITH ICE CREAM. PATIENT IS ABLE TO CALL FOR ASSITANCE. DISHCARGE PLAN PATIENT SON IS WORKING ON GETTING IN HOME CAREGIVING PATIENT WILL DISHCARGE HOME WITH PATIENT SON.
[2024-03-26 19:26] VITALS: BP 110/58
[2024-03-27 03:36] VITALS: BP 110/57
--- NOTE | 2024-03-27 03:46 | NUR ---
SHIFT SUMMARY PT ALERT ORIENTED ABLE TO VERBALIZE NEEDS. NO C/O SOB THIS SHIFT BP WAS 110/58 SO METOPROLOL AND LOSARTAN WAS HELD. REMAINS ON 2L VIA NC. SHE HAS A PICC LINE TO HER RT UPPER ARM. SHES A POSSIBLE DISCHARGE TO HOME THIS MORNING. NO C/O PAIN THIS SHIFT GETS UP TO THE COMMODE. LUNG SOUNDS CLEAR DIMINISHED NOCOUGH OR CONGESTION. RESTING WELL AT THIS TIME WITH CALL LIGHT IN REACH
[2024-03-27 05:29] LABS: Hematocrit 24.9 % (33.0-51.0); Hemoglobin 8.3 g/dL (11.5-16.0); Mean Corpuscular HGB 29.2 pg (26.0-34.0); Mean Corpuscular HGB Conc 33.3 g/dL (31.5-36.5); Mean Corpuscular Volume 88 fL (80-100); Mean Platelet Volume 9.7 fL (9.1-12.4); Platelet Count 229 K/mm3 (150-400); RDW Coefficient Variation 16.2 % (11.7-14.2); RDW Standard Deviation 52.8 fL (35.1-46.3); Red Blood Cell Count 2.84 M/mm3 (3.80-5.20); White Blood Cell Count 7.72 K/mm3 (4.00-11.30)
[2024-03-27 05:46] LABS: Albumin, Blood 2.2 g/dL (3.4-5.0); Anion Gap 7 mmol/L (3-11); Blood Urea Nitrogen 9 mg/dL (8-24); Bun/Creatinine Ratio 10.1 (12.0-20.0); CO2, Blood 32 mmol/L (21-32); Calcium, Blood 8.9 mg/dL (8.5-10.1); Chloride, Blood 106 mmol/L (98-108); Creatinine, Blood 0.89 mg/dL (0.40-1.00); Glomerular Filtration Rate 72 (60-); Glucose, Blood 100 mg/dL (70-99); Magnesium, Blood 1.7 mg/dL (1.6-2.4); Phosphorus, Blood 3.8 mg/dL (2.5-4.9); Potassium, Blood 3.4 mmol/L (3.5-5.5); Sodium, Blood 142 mmol/L (136-145)
[2024-03-27 07:46] VITALS: BP 103/63
[2024-03-27] MEDS ORDERED: OMEP20ER PO (15:28)
[2024-03-27] MEDS ORDERED: JARDIANCE10 MG PO (16:14)
[2024-03-27] MEDS ORDERED: METO25ER PO (16:14)
[2024-03-27] MEDS ORDERED: Percocet 5-3251 EACH PO (16:15)
[2024-03-27] MEDS ORDERED: DULERA 100 MCG-13 GM INH (16:15)
[2024-03-27] MEDS ORDERED: LOSA25 PO (16:17)
[2024-03-27] MEDS ORDERED: IPRAT-ALBUT 0.5-3 ML INH (16:18)
[2024-03-27 16:31] VITALS: BP 108/65
--- NOTE | 2024-03-27 17:15 | NUR ---
PATIENT HAS DC ORDERS AND WILL DC TO SNF IN [place] TOMORROW. WORKED WITH PT/OT TODAY AND SPENT SEVERAL HOURS UP IN CHAIR TODAY. ABLE TO AMBULATE WITH FWW AND 1PA. MEDICATED FOR RIB PAIN WITH TYLENOL AND PERCOCET. VSS, 2.5LO2 TO MAINTAIN SATS. PATIENT A/OX4 AND CALLS APPORPRIATELY FOR ASSISTANCE.
[2024-03-27 19:41] VITALS: BP 95/53
[2024-03-27 20:59] VITALS: BP 105/65
--- NOTE | 2024-03-28 06:13 | NUR ---
SHIFT SUMMARY PT HAS BEEN SLEEPING ON/OFF THROUGHOUT THE NIGHT.PT AMBULATED TO BATHROOM WITH ONE ASSIST AND A WALKER.PT C/O PAIN WITH MOVEMENT.PRN PERCOCET 1 TAB GIVEN PER PT'S REQUEST.NO OTHER CHANGES IN ASSESSMENT NOTED.PT SLEEPING AT THIS TIME.NO S/S OF PAIN/DISCOMFORT NOTED.WILL CONTINUE TO MONITOR.
[2024-03-28 07:19] VITALS: BP 118/63
--- NOTE | 2024-03-28 12:05 | NUR ---
PATIENT D/C'D TO POST ACUTE CARE IN [place]. REPORT CALLED TO ZARIA THOMAS. PACKET AND BELONGINGS SENT WITH [employer] ALONG WITH HARD SCRIPT FOR OXYCODONE. PATIENT DENIES ANY FURTHER QUESTIONS OR CONCERNS.
== END 2024-03-28 12:10 | DRG 871 ==
LOC: ER 01:52 → ERHOLD 03:30 → PCU 03:30 → ICUE 03:30 → MEDS 03:30 → ICUE 05:30 → PCU 03-18 12:51 → MEDS 03-21 23:36
PROVIDERS: Emergency Medicine; Hospitalist; Internal Medicine; Student in an Organized Health Care Education/Training Program; ADMIT Internal Medicine
PROC: 5A1945Z Respiratory Ventilation, 24-96 Consecutive Hours (ICD-10-PCS; principal; 2024-03-14)
PROC: 0BH17EZ Insertion of Endotracheal Airway into Trachea, Via Natural or Artificial Opening (ICD-10-PCS; 2024-03-14)
PROC: 3E03329 Introduction of Other Anti-infective into Peripheral Vein, Percutaneous Approach (ICD-10-PCS; 2024-03-14)
PROC: 3E033XZ Introduction of Vasopressor into Peripheral Vein, Percutaneous Approach (ICD-10-PCS; 2024-03-14)
PROC: 5A09357 Assistance with Respiratory Ventilation, Less than 24 Consecutive Hours, Continuous Positive Airway Pressure (ICD-10-PCS; 2024-03-18)
DX: A41.89 Other specified sepsis (principal); I46.8 Cardiac arrest due to other underlying condition; J96.01 Acute respiratory failure with hypoxia; J96.02 Acute respiratory failure with hypercapnia; I50.23 Acute on chronic systolic (congestive) heart failure; U07.1 COVID-19; J12.82 Pneumonia due to coronavirus disease 2019; J44.0 Chronic obstructive pulmonary disease with (acute) lower respiratory infection; J44.1 Chronic obstructive pulmonary disease with (acute) exacerbation; Z66 Do not resuscitate; R65.20 Severe sepsis without septic shock; B97.89 Other viral agents as the cause of diseases classified elsewhere; J43.9 Emphysema, unspecified; R41.81 Age-related cognitive decline; I25.10 Atherosclerotic heart disease of native coronary artery without angina pectoris; E78.5 Hyperlipidemia, unspecified; Z79.899 Other long term (current) drug therapy; I25.2 Old myocardial infarction; Z86.73 Personal history of transient ischemic attack (TIA), and cerebral infarction without residual deficits; Z86.718 Personal history of other venous thrombosis and embolism; Z85.118 Personal history of other malignant neoplasm of bronchus and lung; Z92.21 Personal history of antineoplastic chemotherapy; Z92.3 Personal history of irradiation; Z79.02 Long term (current) use of antithrombotics/antiplatelets
CPT/HCPCS: 0241U; 31500; 36415; 36569; 51702; 70450; 71045; 71260; 74230; 80047; 80048; 80053; 80069; 80202; 80320; 81003; 82803; 83605; 83690; 83735; 83880; 84100; 84145; 84443; 84484; 85014; 85025; 85027; 85379; 85610; 85730; 87040; 87070; 87205; 87633; 92526; 92610; 92611; 93005; 93010; 93306; 94002; 94003; 94640; 94644; 94660; 94664; 94760; 94762; 97110; 97110-CQ; 97116; 97116-CQ; 97162; 97165; 97530; 97535; 99291-25; 99292; A9270; C1751; J0456; J0696; J1650; J1815; J1940; J2250; J2371; J2470; J2543; J2704; J2919; J3010; J3370; J3475; J3480; J7030; J7040; J7050; J7060; J7120; Q9967